=== PATIENT | male | born 1980 | race Caucasian/White ===

== ENCOUNTER 2016-08-09 01:29 | Inpatient (IN) | payer SELFPAY ==
[2016-08-09] MEDS ORDERED: OXYCODONE-ACETAMINOPHEN 5-325 MG TABLET PO ONE (03:43)
[2016-08-09] MEDS ORDERED: PROMETHAZINE HCL 25 MG TABLET PO ONE (03:43)
--- NOTE | 2016-08-09 03:52 | ER Document Report ---
ED Extremity Problem, Lower <VENU WRIGHT - Last Filed: 08/09/16 09:59> - General Time seen by provider: 03:51 TRAVEL OUTSIDE OF THE [place] IN LAST 30 DAYS: No <DIPTI ORTIZ - Last Filed: 08/09/16 19:04> - General Chief Complaint: Leg Pain Stated Complaint: LEG PAIN Notes: Patient is a 36-year-old male that comes emergency department with chief complaint of left lower examine swelling and pain. He states that the area started to become painful about 3 weeks ago and has become progressively swollen below the area at the base of his calf including the end of the leg and the foot. He is now walking with a crutch because of the discomfort. He denies injury to the area, denies history of the same, denies any medical history. He denies any surgeries, denies recent long distance travel, denies family history of blood clots. He denies fever. He smokes. (DIPTI ORTIZ) - Related Data Allergies/Adverse Reactions: No Known Allergies Allergy (Verified 08/09/16 01:35) Home Medications: Current Home Medications No Home Medications 08/09/16 [History] Past Medical History - General Information source: Patient - Social History Smoking Status: Current Every Day Smoker Drug Abuse: None Lives with: Spouse/Significant other Family History: Reviewed & Not Pertinent - Medical History Medical History: Negative Renal/ Medical History: Denies: Hx Peritoneal Dialysis Surgical Hx: Negative - Immunizations Immunizations up to date: Yes Hx Diphtheria, Pertussis, Tetanus Vaccination: Yes <DIPTI ORTIZ - Last Filed: 08/09/16 19:04> Review of Systems - Review of Systems Constitutional: No symptoms reported EENT: No symptoms reported Cardiovascular: No symptoms reported Respiratory: No symptoms reported Gastrointestinal: No symptoms reported Genitourinary: No symptoms reported Male Genitourinary: No symptoms reported Musculoskeletal: See HPI Skin: See HPI Hematologic/Lymphatic: No symptoms reported Neurological/Psychological: No symptoms reported <DIPTI ORTIZ - Last Filed: 08/09/16 19:04> Physical Exam - Vital signs Interpretation: Normal - General General appearance: Anxious In distress: None - HEENT Head: Normocephalic, Atraumatic Eyes: Normal Conjunctiva: Normal Extraocular movements intact: Yes Eyelashes: Normal Pupils: PERRL Mouth/Lips: Normal Mucous membranes: Normal Pharynx: Normal Neck: Normal - Respiratory Respiratory status: No respiratory distress Chest status: Nontender Breath sounds: Normal Chest palpation: Normal - Cardiovascular Rhythm: Regular. No: Tachycardia Heart sounds: Normal auscultation, S1 appreciated, S2 appreciated Murmur: No - Abdominal Inspection: Normal Distension: No distension Bowel sounds: Normal Tenderness: Nontender Organomegaly: No organomegaly - Back Back: Normal, Nontender. No: Tender - Extremities General upper extremity: Normal inspection, Nontender, Normal color, Normal ROM , Normal temperature General lower extremity: Other - edema and tenderness extending from the base of the calf over the medial aspect of the leg down towards the there is an area over the ankle with some erythema and a tiny amount of skin peeling, suggestive of cellulitis, however there is no induration noted or obvious fluctuance, there appears to be edema under the area. - Neurological Neuro grossly intact: Yes Cognition: Normal Orientation: AAOx4 [place] Coma Scale Eye Opening: Spontaneous Keisha Coma Scale Verbal: Oriented Keisha Coma Scale Motor: Obeys Commands [place] Coma Scale Total: 15 Speech: Normal Motor strength normal: LUE, RUE, LLE, RLE Sensory: Normal - Psychological Associated symptoms: Normal affect, Normal mood - Skin Skin Temperature: Warm Skin Moisture: Dry Skin Color: Normal <DIPTI ORTIZ - Last Filed: 08/09/16 19:04> - Vital signs Vitals: Temp Pulse Resp BP Pulse Ox 98.1 F 128 H 20 133/87 H 99 08/09/16 01:35 08/09/16 01:35 08/09/16 01:35 08/09/16 01:35 08/09/16 01:35 Course <VENU WRIGHT - Last Filed: 08/09/16 09:59> - Laboratory Result Diagrams: 08/09/16 10:30 08/09/16 10:30 <DIPTI ORTIZ - Last Filed: 08/09/16 19:04> - Re-evaluation Re-evalutation: 08/09/16 09:17 Dr. Diana Corado called report of venous duplex study negative for DVT 08/09/16 09:28 Reviewed patient's ultrasound report findings, consulted with Dr. Espinoza regarding patient's physical exam and ultrasound report. Advises obtaining MRI of the extremity, Dr. ruff advised that this is artifact been ordered. Also recommends obtaining CBC. States he will come see patient after his office hours today. 08/09/16 09:[address] Lieberman who agrees to come and examine patient 08/09/16 09:55 Dr Lieberman plans to take pt to OR. Dr Espinoza updated. (VENU WRIGHT) Slightly strange physical presentation with edema and tenderness extending from the base of the calf over the medial aspect of the left leg down towards the ankle and foot, there is an area over the ankle with some erythema and a tiny amount of skin peeling, suggestive of cellulitis, however there is no induration noted or obvious fluctuance, there appears to be edema under the area. 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 Afebrile, very comfortable on reevaluation. Introduced to Bharti TILLMANP who will assume care and followup on results. 08/09/16 08:55 Reevaluated patient at the bedside because I was still in the facility, area looks worse and more erythematous, could be from ultrasound but concerning for developing infection. Spoke with radiologist on the phone, area appears to be a deep abscess involving muscles and surrounding extremity tissues. Pending saline lock, vancomycin, laboratory workup, I discussed with radiologist and she recommends an MRI to further evaluate this. (DIPTI ORTIZ) - Vital Signs Vital signs: Temp Pulse Resp BP Pulse Ox 97.3 F 110 H 16 136/80 H 100 08/09/16 16:25 08/09/16 16:25 08/09/16 16:25 08/09/16 16:25 08/09/16 16:25 - Laboratory Laboratory results interpreted by me: 08/09/16 08/09/16 10:30 10:30 WBC 12.3 H RBC 3.94 L Hgb 11.1 L Hct 33.4 L RDW 14.4 H Plt Count 609 H Creatine Kinase < 20 L Discharge - Discharge Admitting Provider: Surgicalist Unit Admitted: Medical Floor <VENU WRIGHT - Last Filed: 08/09/16 09:59> - Discharge Admitting Provider: Surgicalist Unit Admitted: Medical Floor <WESTLEYMALOUDIPTI - Last Filed: 08/09/16 19:04> - Discharge Clinical Impression: Swelling of left lower extremity, Abscess of left lower extremity Leg pain Qualifiers: Laterality: left Qualified Code(s): M79.605 - Pain in left leg Condition: Stable Disposition: ADMITTED INPATIENT
[2016-08-09] MEDS ORDERED: SULFAMETHOXAZOLE/TRIMETHOPRIM 800-160 MG TABLET PO ONE (07:36)
[2016-08-09] MEDS ORDERED: DOXYCYCLINE HYCLATE 100 MG TABLET PO ONE (07:36)
[2016-08-09] MEDS ORDERED: VANCOMYCIN HCL INJ 1000 MG VIAL IV ONE (08:55)
[2016-08-09] MEDS ORDERED: MORPHINE SULFATE 10 MG/ML INJ IV ONE (09:03)
[2016-08-09] MEDS ORDERED: NORMAL SALINE 1000 ML 1,000 ML IV ONE (09:28)
[2016-08-09] MEDS ORDERED: HYDROMORPHONE HCL INJ/PF 2 MG/ML AMPULE ONE ×2 (10:26→11:39)
[2016-08-09] MEDS ORDERED: FENTANYL CITRATE INJ/PF 100 MCG/2 ML AMPUL ONE ×3 (10:26→12:25)
[2016-08-09] MEDS ORDERED: MIDAZOLAM 2 MG/2 ML INJ ONE (10:27)
[2016-08-09] MEDS ORDERED: PROPOFOL INJ 200 MG/20 ML VIAL IV ONE (10:27)
[2016-08-09 10:48] LABS: ABSOLUTE BASOPHILS # (AUTO) 0.1 10^3/uL (0.0-0.2); ABSOLUTE EOSINOPHILS # (AUTO) 0.1 10^3/uL (0.0-0.6); ABSOLUTE LYMPHOCYTES (AUTO) 3.1 10^3/uL (0.5-4.7); ABSOLUTE MONOCYTES (AUTO) 1.1 10^3/uL (0.1-1.4); ABSOLUTE NEUT (AUTO) 7.8 10^3/uL (1.7-8.2); EOSINOPHILS % (AUTO) 1.1 % (0-6); HEMATOCRIT 33.4 % (37.9-51.0); HEMOGLOBIN 11.1 g/dL (13.5-17.0); HGB HCT DIFFERENCE -0.1; LYMPHOCYTES % (AUTO) 25.3 % (13-45); MEAN CORPUSCULAR HEMOGLOBIN 28.3 pg (27.0-33.4); MEAN CORPUSCULAR HGB CONC 33.3 g/dL (32.0-36.0); MEAN CORPUSCULAR VOLUME 85 fl (80-97); RED BLOOD COUNT 3.94 10^6/uL (4.35-5.55); RED CELL DISTRIBUTION WIDTH 14.4 % (11.5-14.0); SEGMENTED NEUTROPHILS % (AUTO) 63.6 % (42-78); WHITE BLOOD COUNT 12.3 10^3/uL (4.0-10.5)
[2016-08-09] MEDS ORDERED: LIDOCAINE 0.5% INJ-PF (5 MG/ML) 50 ML SDV ONE (10:53)
[2016-08-09] MEDS ORDERED: ACETAMINOPHEN 100 ML IV ONE (10:53)
--- NOTE | 2016-08-09 10:53 | HISTORY AND PHYSICAL E ---
History and Physical NAME: ION HANSEN : 1980 AGE: 36Y ADMITTED: 08/09/2016 ROOM: ED12 CHIEF COMPLAINT: Pains in the left lower leg. HISTORY OF PRESENT ILLNESS: This is a 36-year-old male who complained of pains along the left lower leg that started 3 weeks ago. He denies any trauma nor insect bite. His occupation is he owns a boat for fishing, but his boat is under repair in the past 2 months. 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 He came in today to the emergency room because of severe pains and he has to use a crutch to walk. An ultrasound of the left lower leg was done which showed a large abscess around the area of the ankle going up towards the area of the knee. There also may be a hematoma or abscess below the soleus below the knee. PAST MEDICAL HISTORY: Unremarkable. SOCIAL HISTORY: He smokes about one pack a day. Denies alcohol or drug use. ALLERGIES: None known. REVIEW OF SYSTEMS: As in HPI. Complaining of severe pains along the left lower leg. Denies any nausea, vomiting, diarrhea, constipation or fever or chills. No dysuria. The rest of the systems are unremarkable. FAMILY HISTORY: Negative for diabetes. PHYSICAL EXAMINATION: GENERAL: A well-developed, well-nourished 36-year-old male, alert and oriented complaining of left leg pains. HEENT: Neck is supple. No thyromegaly. LUNGS: Lungs were clear. HEART: Regular sinus rhythm. ABDOMEN: Soft and nontender. EXTREMITIES: The left lower leg from the ankle is erythematous and with swelling and fluctuation and marked tenderness. There is also swelling on the medial aspect of the left lower leg just above the ankle. Pulses are intact along the left ankle. Left foot is warm. Left ankle function appears intact, but a little discomfort or pains on dorsiflexion. IMPRESSION: Abscess of the left lower leg. PLAN: The patient is to be given IV fluids, IV antibiotics and taken to the OR for incision and drainage of the leg abscess. DICTATING PHYSICIAN: MARÍA HESS M.D. [id number] PHY#: [id number] ID: [id number] JOB#: [id number] ACCT: [id number] cc:MARÍA HESS M.D. >
[2016-08-09 11:08] LABS: ANION GAP 11 (5-19); BLOOD UREA NITROGEN 12 mg/dL (7-20); CALCIUM 9.3 mg/dL (8.4-10.2); CARBON DIOXIDE 26 mmol/L (22-30); CHLORIDE 104 mmol/L (98-107); CREATINE KINASE < 20 U/L (55-170); CREATININE RESULT 0.69 mg/dL (0.52-1.25); GLUCOSE 90 mg/dL (75-110); POTASSIUM 4.5 mmol/L (3.6-5.0); SODIUM 141.2 mmol/L (137-145)
[2016-08-09] MEDS ORDERED: PROMETHAZINE HCL INJ 25 MG/1 ML VIAL IV PRN (11:22)
[2016-08-09] MEDS ORDERED: ONDANSETRON HCL INJ/PF 4 MG/2 ML SDV IV PRN (12:28)
--- NOTE | 2016-08-09 13:03 | OPERATIVE REPORT E ---
Operative Report NAME: ION HANSEN : 1980 AGE: 36Y DATE OF SURGERY: ROOM: ED12 PREOPERATIVE DIAGNOSIS: Large abscess of the left lower leg. POSTOPERATIVE DIAGNOSIS: Large abscess left lower leg with intramuscular extension below the soleus muscle. OPERATION: Incision and drainage of large abscess lower leg with extension to the intramuscular muscles. SURGEON: MARÍA HESS M.D. ANESTHESIA: General. INDICATION: This is a 36-year-old male who has been complaining of pains in the left lower leg for the past 2-1/2 weeks. He finally was able to talk to his sister, who claimed that the patient told her that a dresser he was moving fell on his left leg about 2-1/2 weeks ago. The patient claims that there is no history of trauma. He had an ultrasound of the left leg, which showed extensive abscess extending to below the soleus muscle. PROCEDURE: After adequate general anesthesia, the left leg from above the knee to the toes was then prepped and draped in the usual sterile fashion. A longitudinal incision was made over the most fluctuant area in the ankle. The abscess cavity was then sharply opened and a gush of yellowish purulent material extruded out. Cultures were obtained. The incision extended proximally to a distance of about 10 cm. The veins were clamped and ligated with 2-0 Vicryl ties. At least 300 mL of purulent material was expressed out. With a finger dissection, the abscess cavity appears to go underneath the soleus muscle. The proximal end of the collection was then opened with use of cautery, dividing part of the muscle. This was done to make sure that the area will be irrigated nicely and make sure there is no further collection superior to this. Next, the cavity was then copiously irrigated with PulsaVac using 6 liters of saline. Hemostasis was partially controlled with cautery. Irrigation also done of the muscle superiorly. After the irrigation, at least 2 extensor tendons were exposed. The area was subsequently packed with Betadine soaked Khalida and 1/2 inch Iodoform gauze placed through the muscle proximally, into the cavity. The wound roughly was about 4 cm deep and 10 cm long. Next, 0 Prolene sutures were placed interrupted to keep the dressings in place. About 6 sutures were placed. Next, ABD pads were placed on top of the wound and wrapped with Khalida and Jorgito bandage. The patient tolerated the procedure well and brought to the recovery room in satisfactory condition. Needle, instrument, and sponge count were all correct. Estimated blood loss was about 100 mL. DICTATING PHYSICIAN: MARÍA HESS M.D. [id number] PHY#: [id number] ID: [id number] JOB#: [id number] ACCT: [id number] cc:MARÍA HESS M.D. >
[2016-08-09] MEDS: NORMAL SALINE 1000 ML 1,000 ML IV PRN (13:53)
[2016-08-09] MEDS: FENTANYL CITRATE INJ/PF 100 MCG/2 ML AMPUL IV PRN ×16 (14:05→14:14)
[2016-08-09] MEDS: MEPERIDINE HCL/PF INJ 25 MG/1 ML DISP.SYRIN IV PRN ×4 (14:05→14:10)
[2016-08-09] MEDS: MORPHINE SULFATE 10 MG/ML INJ IV PRN ×5 (14:05→14:15)
[2016-08-09] MEDS: DIPHENHYDRAMINE HCL 50 MG/ML VIAL IV PRN ×7 (14:05→14:13)
[2016-08-09] MEDS: HYDROMORPHONE HCL INJ/PF 2 MG/ML AMPULE IV PRN ×3 (14:44→22:46)
[2016-08-09] MEDS ORDERED: KETOROLAC TROMETHAMINE 60 MG/2 ML SDV ONE (15:52)
[2016-08-09] MEDS ORDERED: ONDANSETRON HCL INJ/PF 4 MG/2 ML SDV ONE (15:52)
[2016-08-09] MEDS ORDERED: DEXAMETHASONE SOD PHOSPHATE INJ 4 MG/1 ML VIAL ONE (15:52)
--- NOTE | 2016-08-09 16:29 | XCELERA REPORT ---
[address] [address] Lower Extremity Venous Evaluation Name: ION HANSEN JR Age: 36 yrs Gender: Male : 1980 Patient Status: Emergency Patient Location: ER Study Date: 08/09/2016 08:53 AM Procedure: Color flow and duplex imaging of the veins of the left lower extremity as well as the right Common Femoral vein. Reason For Study: LLE swelling and pain Ordering Physician: DIPTI ORTIZ Performed By: Shonna Pineda Right Sided Venous Evaluation The right common femoral vein is fully compressible. Spontaneous and phasic flow is present in the right common femoral vein. Left Sided Venous Evaluation Normal vessel filling wall to wall, compression and augmentation as well as Colour flow down to the infrageniculate veins. Interpretation Summary No duplex evidence of DVT or obstruction in the left lower extremity nor in the right Common Femoral vein. : DIPTI ORTIZ > Luisito Corado
[2016-08-09] MEDS: VANCOMYCIN HCL 1,250 MG in DEXTROSE 5%-WATER 250 ML IV SCH (18:51)
[2016-08-09] MEDS ORDERED: NICOTINE 14 MG/24 HR PATCH.TD24 TD ONE (21:00)
[2016-08-10] MEDS: NORMAL SALINE 1000 ML 1,000 ML IV PRN (01:23)
[2016-08-10] MEDS: VANCOMYCIN HCL 1,250 MG in DEXTROSE 5%-WATER 250 ML IV SCH ×3 (01:23→18:44)
[2016-08-10] MEDS: HYDROMORPHONE HCL INJ/PF 2 MG/ML AMPULE IV PRN ×6 (02:16→21:54)
[2016-08-10] MEDS ORDERED: KETOROLAC TROMETHAMINE INJ/PF 30 MG/1 ML SDV ONE (05:06)
[2016-08-10] MEDS: KETOROLAC TROMETHAMINE INJ/PF 30 MG/1 ML SDV IV SCH ×3 (05:25→21:05)
[2016-08-10] MEDS ORDERED: DEXTROSE 40% GEL 15 GM TUBE PO PRN ×2 (05:46)
[2016-08-10] MEDS ORDERED: DEXTROSE 50%-WATER 25 GM/50 ML DISP.SYRIN IV PRN ×2 (05:46)
[2016-08-10] MEDS ORDERED: GLUCAGON,HUMAN RECOMB 1 MG INJ SUBCUT PRN (05:46)
[2016-08-10] MEDS: NICOTINE 14 MG/24 HR PATCH.TD24 TD SCH (10:17)
[2016-08-10] MEDS ORDERED: HYDROMORPHONE HCL INJ/PF 2 MG/ML AMPULE ONE (15:16)
[2016-08-10] MEDS ORDERED: FENTANYL CITRATE INJ/PF 100 MCG/2 ML AMPUL ONE (15:16)
[2016-08-10] MEDS ORDERED: MIDAZOLAM 2 MG/2 ML INJ ONE (15:17)
[2016-08-10] MEDS ORDERED: PROPOFOL INJ 200 MG/20 ML VIAL IV ONE (15:17)
[2016-08-10] MEDS ORDERED: DIPHENHYDRAMINE HCL 50 MG/ML VIAL IV PRN (16:26)
[2016-08-10] MEDS ORDERED: PROMETHAZINE HCL INJ 25 MG/1 ML VIAL IV PRN (16:26)
[2016-08-10] MEDS ORDERED: FENTANYL CITRATE INJ/PF 100 MCG/2 ML AMPUL IV PRN ×3 (16:26)
[2016-08-10] MEDS ORDERED: HYDROMORPHONE HCL INJ/PF 2 MG/ML AMPULE IV PRN (17:18)
--- NOTE | 2016-08-10 17:23 | OPERATIVE REPORT E ---
Operative Report NAME: ION HANSEN : 1980 AGE: 36Y DATE OF SURGERY: 08/10/2016 ROOM: 527 PREOPERATIVE DIAGNOSIS: Post incision and drainage of large abscess, intramuscular, and packing. POSTOPERATIVE DIAGNOSIS: Post incision and drainage of large abscess, intramuscular, and packing. OPERATION: Debridement and PulsaVac of left leg ulcer with change of packing and dressing. SURGEON: MARÍA HESS M.D. ANESTHESIA: General. INDICATION: This is a 36-year-old male who had a large ulcer/abscess in the left lower leg which was I and D'd yesterday. The abscess appears to track down underneath the soleus muscle. DESCRIPTION OF PROCEDURE: After adequate general anesthesia the left leg was prepped and draped in the usual sterile fashion. The packing was then removed and the area was PulsaVac'd with at least 2 L. There was an area of necrosis on the surface that was subsequently sharply debrided. However, no further abscess collection was noted and the area looks relatively clean. Initial culture yesterday showed gram-positive cocci in clusters, indicating likely a Staph aureus. He has been on vancomycin since yesterday. Hemostasis was further controlled with cautery. Further PulsaVac using the rest of the 3rd liter of fluid was done. The muscle also looked pink and viable. Next, the area was then repacked with 4 bottles of half inch Iodoform gauze. Sutures of 0-Prolene was placed on the skin to keep the packing in place. A sterile dressing using ABD pads and cling as well as selene bandage were used to dress the wound. The patient tolerated the procedure well. needle, instrument and sponge counts were all correct. Estimated blood loss was minimal. The patient was brought to recovery room in satisfactory condition. DICTATING PHYSICIAN: MARÍA HESS M.D. [id number] PHY#: [id number] ID: [id number] JOB#: [id number] ACCT: [id number] cc:MARÍA HESS M.D. >
[2016-08-10 18:09] LABS: CREATININE RESULT 0.75 mg/dL (0.52-1.25)
[2016-08-11] MEDS: VANCOMYCIN HCL 1,250 MG in DEXTROSE 5%-WATER 250 ML IV SCH ×3 (01:02→22:11)
[2016-08-11] MEDS: HYDROMORPHONE HCL INJ/PF 2 MG/ML AMPULE IV PRN ×7 (01:02→23:14)
[2016-08-11 04:46] LABS: ABSOLUTE BASOPHILS # (AUTO) 0.1 10^3/uL (0.0-0.2); ABSOLUTE EOSINOPHILS # (AUTO) 0.2 10^3/uL (0.0-0.6); ABSOLUTE LYMPHOCYTES (AUTO) 2.8 10^3/uL (0.5-4.7); ABSOLUTE MONOCYTES (AUTO) 1.6 10^3/uL (0.1-1.4); ABSOLUTE NEUT (AUTO) 10.7 10^3/uL (1.7-8.2); BASOPHILS % (AUTO) 0.7 % (0-2); HEMATOCRIT 20.9 % (37.9-51.0); HGB HCT DIFFERENCE -0.5; MEAN CORPUSCULAR HEMOGLOBIN 27.7 pg (27.0-33.4); MEAN CORPUSCULAR HGB CONC 32.4 g/dL (32.0-36.0); MEAN CORPUSCULAR VOLUME 86 fl (80-97); MONOCYTES % (AUTO) 10.3 % (3-13); RED BLOOD COUNT 2.44 10^6/uL (4.35-5.55); RED CELL DISTRIBUTION WIDTH 14.9 % (11.5-14.0); WHITE BLOOD COUNT 15.3 10^3/uL (4.0-10.5)
[2016-08-11 04:58] LABS: HEMOGLOBIN 6.8 g/dL (13.5-17.0)
[2016-08-11 05:09] LABS: ANION GAP 8 (5-19); BLOOD UREA NITROGEN 13 mg/dL (7-20); CALCIUM 8.1 mg/dL (8.4-10.2); CARBON DIOXIDE 24 mmol/L (22-30); CHLORIDE 105 mmol/L (98-107); GLUCOSE 103 mg/dL (75-110); POTASSIUM 4.3 mmol/L (3.6-5.0); SODIUM 136.8 mmol/L (137-145)
[2016-08-11 05:34] LABS: ERYTHROCYTE SEDIMENTATION RATE 61 mm/hr (0-15)
[2016-08-11] MEDS: KETOROLAC TROMETHAMINE INJ/PF 30 MG/1 ML SDV IV SCH ×3 (05:49→22:11)
[2016-08-11] MEDS: NICOTINE 14 MG/24 HR PATCH.TD24 TD SCH (09:09)
[2016-08-11] MEDS ORDERED: FENTANYL CITRATE INJ/PF 100 MCG/2 ML AMPUL ONE (11:54)
[2016-08-11] MEDS ORDERED: MIDAZOLAM 2 MG/2 ML INJ ONE (11:54)
[2016-08-11] MEDS ORDERED: PROPOFOL INJ 200 MG/20 ML VIAL IV ONE (11:55)
[2016-08-11] MEDS ORDERED: EPHEDRINE SULFATE INJ 50 MG/1 ML AMPULE ONE (11:55)
[2016-08-11] MEDS ORDERED: ONDANSETRON HCL INJ/PF 4 MG/2 ML SDV ONE (11:55)
[2016-08-11] MEDS: FENTANYL CITRATE INJ/PF 100 MCG/2 ML AMPUL ONE ×2 (13:19→13:39)
[2016-08-11] MEDS: PROMETHAZINE HCL INJ 25 MG/1 ML VIAL IV PRN ×3 (13:21→14:51)
[2016-08-11] MEDS: MEPERIDINE HCL/PF INJ 25 MG/1 ML DISP.SYRIN IV PRN ×3 (13:21→14:51)
[2016-08-11] MEDS: DIPHENHYDRAMINE HCL 50 MG/ML VIAL IV PRN ×3 (13:21→14:51)
[2016-08-11] MEDS: FENTANYL CITRATE INJ/PF 100 MCG/2 ML AMPUL IV PRN ×9 (13:21→14:51)
[2016-08-11] MEDS ORDERED: KETOROLAC TROMETHAMINE INJ/PF 30 MG/1 ML SDV ONE (13:59)
--- NOTE | 2016-08-11 14:04 | OPERATIVE REPORT E ---
Operative Report NAME: ION HANSEN : 1980 AGE: 36Y DATE OF SURGERY: 08/11/2016 ROOM: [facility] PREOPERATIVE DIAGNOSIS: Large abscess site on the left lower leg post I and D. POSTOPERATIVE DIAGNOSIS: Large abscess site on the left lower leg post I and D. Proximal intramuscular component. OPERATION: Debridement of large I and D site on the left lower leg, measuring 10 inches long x 2 inches deep. Debridement with use of Pulsavac and sharp debridement of superficial necrotic tissue. Placement of a wound VAC. SURGEON: MARÍA HESS M.D. ANESTHESIA: General. INDICATION: This is a 36-year-old male who developed a large abscess of the left lower leg after a piece of dresser hit him on the left leg about 2-1/2 weeks ago. This was initially drained 2 days ago and again debrided yesterday. This is the 3rd time the patient is going to the OR for debridement and placement of a wound VAC. DESCRIPTION OF PROCEDURE: After adequate general anesthesia, the left lower leg was then prepped and draped in the usual sterile fashion. All the packings were then removed. There is a thin layer of necrotic tissue on the surface of the muscle. This was then removed with shaving with a 15 blade. The area was then Pulsavac'd using 8 liters of normal saline. After irrigation, more superficial debris was then sharply removed. The muscle looked viable. No obvious collection noted. A wound VAC was then applied to the wound after adequate hemostasis was noted. It was connected to suction at -135 mmHg. He will probably need another change in wound VAC in the next 24-48 hours. In the meantime, will monitor his white count and temperature. The patient tolerated the procedure well. Needle, instrument, and sponge count were all correct. Estimated blood loss was minimal. The patient was then brought to the recovery room in satisfactory condition. DICTATING PHYSICIAN: MARÍA HESS M.D. [id number] PHY#: [id number] ID: [id number] JOB#: [id number] ACCT: [id number] cc:MARÍA HESS M.D. >
[2016-08-11] MEDS ORDERED: VANCOMYCIN HCL 1,250 MG in DEXTROSE 5%-WATER 250 ML IV ONE (15:00)
[2016-08-11] MEDS ORDERED: HYDROMORPHONE HCL INJ/PF 2 MG/ML AMPULE IV PRN (20:13)
[2016-08-12] MEDS: OXYCODONE-ACETAMINOPHEN 5-325 MG TABLET PO PRN ×3 (01:50→21:36)
[2016-08-12] MEDS: HYDROMORPHONE HCL INJ/PF 2 MG/ML AMPULE IV PRN ×7 (02:16→22:02)
[2016-08-12 03:57] LABS: APPEARANCE,URINE SLIGHTLY-CLOUDY; BILIRUBIN,URINE NEGATIVE (NEGATIVE); GLUCOSE, URINE NEGATIVE (NEGATIVE); KETONES,URINE NEGATIVE (NEGATIVE); LEUKOCYTE ESTERASE,URINE MODERATE (NEGATIVE); NITRITE,URINE NEGATIVE (NEGATIVE); PROTEIN,URINE NEGATIVE (NEGATIVE); URINE SPECIFIC GRAVITY 1.011; UROBILINOGEN,URINE NEGATIVE mg/dL (<2.0)
[2016-08-12] MEDS: KETOROLAC TROMETHAMINE INJ/PF 30 MG/1 ML SDV IV SCH ×3 (05:17→21:36)
[2016-08-12] MEDS: VANCOMYCIN HCL 1,250 MG in DEXTROSE 5%-WATER 250 ML IV SCH ×3 (05:17→21:36)
[2016-08-12 06:08] LABS: HEMATOCRIT 26.2 % (37.9-51.0); HEMOGLOBIN 8.8 g/dL (13.5-17.0); HGB HCT DIFFERENCE 0.2; MEAN CORPUSCULAR HGB CONC 33.5 g/dL (32.0-36.0); MEAN CORPUSCULAR VOLUME 87 fl (80-97); RED BLOOD COUNT 3.03 10^6/uL (4.35-5.55); RED CELL DISTRIBUTION WIDTH 15.1 % (11.5-14.0); WHITE BLOOD COUNT 10.2 10^3/uL (4.0-10.5)
[2016-08-12 06:21] LABS: ANION GAP 7 (5-19); BLOOD UREA NITROGEN 14 mg/dL (7-20); CALCIUM 8.2 mg/dL (8.4-10.2); CARBON DIOXIDE 25 mmol/L (22-30); CHLORIDE 110 mmol/L (98-107); CREATININE RESULT 0.83 mg/dL (0.52-1.25); GLUCOSE 126 mg/dL (75-110); POTASSIUM 4.3 mmol/L (3.6-5.0); SODIUM 141.5 mmol/L (137-145)
[2016-08-12 06:44] LABS: ERYTHROCYTE SEDIMENTATION RATE 46 mm/hr (0-15)
[2016-08-12] MEDS: NICOTINE 14 MG/24 HR PATCH.TD24 TD SCH (09:23)
[2016-08-12] MEDS ORDERED: DEXTROSE 50%-WATER 25 GM/50 ML DISP.SYRIN IV PRN ×2 (22:09)
[2016-08-12] MEDS ORDERED: GLUCAGON,HUMAN RECOMB 1 MG INJ SUBCUT PRN (22:09)
[2016-08-12] MEDS ORDERED: DEXTROSE 40% GEL 15 GM TUBE PO PRN ×2 (22:09)
[2016-08-13] MEDS: HYDROMORPHONE HCL INJ/PF 2 MG/ML AMPULE IV PRN ×7 (01:04→22:58)
[2016-08-13] MEDS: OXYCODONE-ACETAMINOPHEN 5-325 MG TABLET PO PRN ×4 (03:13→20:31)
[2016-08-13] MEDS: VANCOMYCIN HCL 1,250 MG in DEXTROSE 5%-WATER 250 ML IV SCH ×3 (05:34→21:20)
[2016-08-13 06:43] LABS: ABSOLUTE BASOPHILS # (AUTO) 0.1 10^3/uL (0.0-0.2); ABSOLUTE EOSINOPHILS # (AUTO) 0.3 10^3/uL (0.0-0.6); ABSOLUTE LYMPHOCYTES (AUTO) 2.4 10^3/uL (0.5-4.7); ABSOLUTE MONOCYTES (AUTO) 1.2 10^3/uL (0.1-1.4); ABSOLUTE NEUT (AUTO) 6.9 10^3/uL (1.7-8.2); BASOPHILS % (AUTO) 0.7 % (0-2); EOSINOPHILS % (AUTO) 2.5 % (0-6); HEMATOCRIT 25.5 % (37.9-51.0); HEMOGLOBIN 8.7 g/dL (13.5-17.0); HGB HCT DIFFERENCE 0.6; MEAN CORPUSCULAR HEMOGLOBIN 29.4 pg (27.0-33.4); MEAN CORPUSCULAR HGB CONC 34.2 g/dL (32.0-36.0); MEAN CORPUSCULAR VOLUME 86 fl (80-97); MONOCYTES % (AUTO) 10.7 % (3-13); RED BLOOD COUNT 2.97 10^6/uL (4.35-5.55); RED CELL DISTRIBUTION WIDTH 15.1 % (11.5-14.0); SEGMENTED NEUTROPHILS % (AUTO) 64.1 % (42-78); WHITE BLOOD COUNT 10.8 10^3/uL (4.0-10.5)
[2016-08-13] MEDS: NICOTINE 14 MG/24 HR PATCH.TD24 TD SCH (10:36)
[2016-08-13] MEDS: NORMAL SALINE 1000 ML 1,000 ML IV PRN ×2 (13:45→21:24)
[2016-08-13] MEDS ORDERED: KETAMINE HCL INJ 500 MG/10 ML VIAL ONE (17:29)
[2016-08-13] MEDS ORDERED: PROPOFOL INJ 200 MG/20 ML VIAL IV ONE (17:30)
[2016-08-13] MEDS ORDERED: FENTANYL CITRATE INJ/PF 100 MCG/2 ML AMPUL ONE (17:30)
[2016-08-13] MEDS ORDERED: MIDAZOLAM 2 MG/2 ML INJ ONE (17:30)
[2016-08-13] MEDS ORDERED: FENTANYL CITRATE INJ/PF 100 MCG/2 ML AMPUL IV PRN ×3 (18:13)
[2016-08-13] MEDS ORDERED: DIPHENHYDRAMINE HCL 50 MG/ML VIAL IV PRN (18:13)
[2016-08-13] MEDS ORDERED: PROMETHAZINE HCL INJ 25 MG/1 ML VIAL IV PRN (18:13)
[2016-08-14] MEDS: OXYCODONE-ACETAMINOPHEN 5-325 MG TABLET PO PRN ×4 (00:47→17:32)
--- NOTE | 2016-08-14 01:33 | OPERATIVE REPORT E ---
Operative Report NAME: ION HANSEN : 1980 AGE: 36Y DATE OF SURGERY: 08/13/2016 ROOM: [facility] PREOPERATIVE DIAGNOSIS: LEFT LOWER EXTREMITY OPEN WOUND DEEP WITH MUSCLE EXPOSED. POSTOPERATIVE DIAGNOSIS: LEFT LOWER EXTREMITY OPEN WOUND DEEP WITH MUSCLE EXPOSED. OPERATION: Changing of left lower extremity wound VAC under anesthesia. SURGEON: TABITHA NEWMAN M.D. ANESTHESIA: MAC. FINDINGS AT PROCEDURE: The patient's wound is granulating well of the left lower extremity with no necrotic debris being present at the current time. PROCEDURE: After informed consent was obtained, the patient was taken to the procedure room and placed in the supine position. MAC anesthesia was administered. The wound VAC was then removed from the left lower extremity. The wound was granulating in with minimal tendon showing. Wound VAC was then replaced. The patient was then awakened and taken to from the procedure room in stable condition. ESTIMATED BLOOD LOSS: None. COMPLICATIONS: None. CONDITION OF PATIENT AFTER PROCEDURE: Stable. SPECIMENS: None. DRAINS: Drains were packed. The wound VAC was placed. CLASSIFICATION OF WOUND: Contaminated. DICTATING PHYSICIAN: TABITHA NEWMAN M.D. [id number] PHY#: [id number] ID: [id number] JOB#: [id number] ACCT: [id number] cc:TABITHA NEWMAN M.D. >
[2016-08-14] MEDS: HYDROMORPHONE HCL INJ/PF 2 MG/ML AMPULE IV PRN ×8 (02:08→23:45)
[2016-08-14] MEDS: VANCOMYCIN HCL 1,250 MG in DEXTROSE 5%-WATER 250 ML IV SCH ×3 (05:40→22:09)
[2016-08-14] MEDS: NICOTINE 14 MG/24 HR PATCH.TD24 TD SCH (11:37)
--- NOTE | 2016-08-14 23:28 | PROGRESS NOTE E ---
Progress Note NAME: ION HANSEN : 1980 AGE: 36Y DATE: 08/14/2016 ROOM: 527 Patient has a significant infection on the lower left leg, undergoing incision, drainage and debridement. He has been on IV antibiotics for an MRSA infection. The wound VAC had been placed on wound and changed yesterday with the wound starting to granulate in and without necrotic debris. SUBJECTIVE: Complaints of pain at the surgical site. OBJECTIVE: Wound VAC is in place in the left lower extremity. PLAN: 1. Continue IV antibiotics. 2. Wound VAC change in next 2-4 days. 3. Pain control which is difficult in his case. We will try and shorten the duration of when he can get his Dilaudid, and he is also on Percocet. DICTATING PHYSICIAN: TABITHA NEWMAN M.D. [id number] PHY#: [id number] ID: [id number] JOB#: [id number] ACCT: [id number] cc: >
[2016-08-15] MEDS: HYDROMORPHONE HCL INJ/PF 2 MG/ML AMPULE IV PRN ×9 (01:45→22:13)
[2016-08-15] MEDS: OXYCODONE-ACETAMINOPHEN 5-325 MG TABLET PO PRN ×3 (01:46→17:17)
[2016-08-15] MEDS: VANCOMYCIN HCL 1,250 MG in DEXTROSE 5%-WATER 250 ML IV SCH ×3 (05:56→22:12)
--- NOTE | 2016-08-15 08:59 | PROGRESS NOTE E ---
Progress Note NAME: ION HANSEN : 1980 AGE: 36Y DATE: 08/12/2016 ROOM: 527 CHIEF COMPLAINT: The patient had a severe infection in the left lower extremity, undergoing debridement and now having wound VAC placed. SUBJECTIVE: The patient has complaints of pain at the surgical site which is being relieved with IV pain medication along with oral Percocet. OBJECTIVE: The patient has a wound VAC in place on the left lower extremity medial aspect. DIAGNOSTIC DATA: White blood cell count is 11. ASSESSMENT: SEVERE INFECTION, RIGHT LOWER EXTREMITY, STATUS POST DEBRIDEMENT, DRAINAGE, AND WOUND VAC PLACEMENT. I WOULD RECOMMEND THE PATIENT UNDERGO A WOUND VAC CHANGE IN THE MORNING IN THE OPERATING ROOM UNDER ANESTHESIA. PLAN: Wound VAC change in a.m. under anesthesia in the operating room. DICTATING PHYSICIAN: TABITHA NEWMAN M.D. [id number] [id number] PHY#: [id number] ID: [id number] JOB#: [id number] ACCT: [id number] cc: >
[2016-08-15] MEDS: NICOTINE 14 MG/24 HR PATCH.TD24 TD SCH (09:23)
[2016-08-15] MEDS: DOCUSATE SODIUM 100 MG CAPSULE PO SCH ×2 (09:24→17:58)
[2016-08-15] MEDS: MULTIVITAMIN TABLET PO SCH (09:24)
[2016-08-15] MEDS: FERROUS SULFATE 325 MG TABLET PO SCH (09:24)
[2016-08-15] MEDS: FONDAPARINUX SODIUM INJ 2.5 MG/0.5 ML DISP.SYRIN SUBCUT SCH (09:24)
--- NOTE | 2016-08-15 12:53 | PROGRESS NOTE E ---
Progress Note NAME: ION HANSEN : 1980 AGE: 36Y DATE: 08/15/2016 ROOM: 527 SUBJECTIVE: The patient is a 36-year-old gentleman who has a history of drug abuse. He had been admitted for a left lower extremity wound which was debrided and a wound VAC was placed. OBJECTIVE: The wound VAC is intact. There is no sign of cellulitis. PLAN: Is just to continue the wound VAC and change it in a few days. DICTATING PHYSICIAN: GERALD LOPEZ M.D. [id number] PHY#: [id number] ID: [id number] JOB#: [id number] ACCT: [id number] cc: >
[2016-08-16] MEDS: HYDROMORPHONE HCL INJ/PF 2 MG/ML AMPULE IV PRN ×10 (00:07→22:20)
[2016-08-16 06:15] LABS: HEMATOCRIT 31.2 % (37.9-51.0); HEMOGLOBIN 10.4 g/dL (13.5-17.0); MEAN CORPUSCULAR HGB CONC 33.2 g/dL (32.0-36.0); MEAN CORPUSCULAR VOLUME 87 fl (80-97); RED BLOOD COUNT 3.58 10^6/uL (4.35-5.55); RED CELL DISTRIBUTION WIDTH 15.5 % (11.5-14.0); WHITE BLOOD COUNT 8.7 10^3/uL (4.0-10.5)
[2016-08-16 06:35] LABS: CREATININE RESULT 0.89 mg/dL (0.52-1.25)
[2016-08-16] MEDS: VANCOMYCIN HCL 1,250 MG in DEXTROSE 5%-WATER 250 ML IV SCH (06:39)
[2016-08-16] MEDS: FONDAPARINUX SODIUM INJ 2.5 MG/0.5 ML DISP.SYRIN SUBCUT SCH (11:09)
[2016-08-16] MEDS: DOCUSATE SODIUM 100 MG CAPSULE PO SCH ×2 (11:11→18:07)
[2016-08-16] MEDS: NICOTINE 14 MG/24 HR PATCH.TD24 TD SCH (11:12)
[2016-08-16] MEDS: MULTIVITAMIN TABLET PO SCH (11:12)
[2016-08-16] MEDS: FERROUS SULFATE 325 MG TABLET PO SCH (11:12)
--- NOTE | 2016-08-16 11:33 | PROGRESS NOTE E ---
Progress Note NAME: ION HANSEN : 1980 AGE: 36Y DATE: 08/16/2016 ROOM: 527 SUBJECTIVE: The patient's wound VAC continues to look healthy. He still complains of pain when weightbearing. There is no sign of infection, however, the wound VAC I was told and signed out be changed on Friday. The patient has requested that it be done in the operating room. We will defer to whichever surgicalist is seeing him at that time. I spent some time discussing the potential for skin grafting with him and what is involved in that. He is still continuing to complain of pain. He does have a past history of drug abuse but states that he has been clean for a year. The pain medication of Dilaudid is not lasting. He is using it q.2 hours. I have discussed it with the nurse. I am going to increase his pain medications to 3 mg of hydromorphone and I am going to get some physical therapy for him. DICTATING PHYSICIAN: GERALD LOPEZ M.D. [id number] [id number] PHY#: [id number] ID: [id number] JOB#: [id number] ACCT: [id number] cc: >
[2016-08-16] MEDS ORDERED: VANCOMYCIN HCL 1,000 MG in DEXTROSE 5%-WATER 250 ML IV SCH (22:00)
[2016-08-16] MEDS: OXYCODONE-ACETAMINOPHEN 5-325 MG TABLET PO PRN (23:39)
[2016-08-17] MEDS: HYDROMORPHONE HCL INJ/PF 2 MG/ML AMPULE IV PRN ×6 (00:35→22:54)
[2016-08-17] MEDS: DOCUSATE SODIUM 100 MG CAPSULE PO SCH ×2 (09:01→18:25)
[2016-08-17] MEDS: FERROUS SULFATE 325 MG TABLET PO SCH (09:02)
[2016-08-17] MEDS: OXYCODONE-ACETAMINOPHEN 5-325 MG TABLET PO PRN ×3 (09:03→21:38)
[2016-08-17] MEDS: MULTIVITAMIN TABLET PO SCH (09:03)
[2016-08-17] MEDS: OXYCODONE HCL IR 5 MG TABLET PO PRN ×3 (09:04→21:43)
[2016-08-17] MEDS: FONDAPARINUX SODIUM INJ 2.5 MG/0.5 ML DISP.SYRIN SUBCUT SCH (09:05)
[2016-08-17] MEDS: NICOTINE 14 MG/24 HR PATCH.TD24 TD SCH (09:13)
--- NOTE | 2016-08-17 09:47 | PDOC PROGRESS REPORT ---
Subjective Progress Note for:: 08/17/16 Subjective:: still asking pain meds every 2 hours Physical Exam Vital Signs: Temp Pulse Resp BP Pulse Ox 98.0 F 97 16 103/60 98 08/17/16 07:24 08/17/16 07:24 08/17/16 07:24 08/17/16 07:24 08/17/16 07:24 Intake & Output 08/16/16 08/17/16 08/18/16 06:59 06:59 06:59 Intake Total 2167 930 Output Total 2375 1025 Balance -208 -95 Extremities exam: PRESENT: other - Left leg vertical wound, with vac in place , clean no cellulitis, non tender, no signs of any necrotic tissue. NO vascular or neurological deficit. Wound is clean His pain level - not consitent with clinical picture patient education rendered about pain management and possible overdose and abuse, still paln to treat his pain appropriately , refer to pain management. Patient can be discharged with out patient wound management . Expalined to the patinet and discussed with workforce planner. Results Laboratory Results: 08/16/16 06:01 08/16/16 06:01 Impressions: Extremity Ultrasound 08/09/16 07:27 IMPRESSION: Large superficial and deep complex fluid collection left lower leg , worrisome for abscess.
[2016-08-17] MEDS: VANCOMYCIN HCL 1,000 MG in DEXTROSE 5%-WATER 250 ML IV SCH ×2 (11:13→21:38)
[2016-08-18] MEDS: OXYCODONE HCL IR 5 MG TABLET PO PRN ×2 (04:00→11:22)
[2016-08-18] MEDS: OXYCODONE-ACETAMINOPHEN 5-325 MG TABLET PO PRN ×2 (04:01→11:23)
[2016-08-18 06:20] LABS: HEMATOCRIT 31.4 % (37.9-51.0); HEMOGLOBIN 10.6 g/dL (13.5-17.0); HGB HCT DIFFERENCE 0.4; MEAN CORPUSCULAR HEMOGLOBIN 29.5 pg (27.0-33.4); MEAN CORPUSCULAR HGB CONC 33.6 g/dL (32.0-36.0); MEAN CORPUSCULAR VOLUME 88 fl (80-97); RED BLOOD COUNT 3.58 10^6/uL (4.35-5.55); RED CELL DISTRIBUTION WIDTH 15.8 % (11.5-14.0); WHITE BLOOD COUNT 10.1 10^3/uL (4.0-10.5)
[2016-08-18 06:29] LABS: ANION GAP 10 (5-19); BLOOD UREA NITROGEN 17 mg/dL (7-20); CALCIUM 9.6 mg/dL (8.4-10.2); CARBON DIOXIDE 26 mmol/L (22-30); CHLORIDE 103 mmol/L (98-107); CREATININE RESULT 0.86 mg/dL (0.52-1.25); GLUCOSE 104 mg/dL (75-110); POTASSIUM 4.7 mmol/L (3.6-5.0)
[2016-08-18] MEDS: HYDROMORPHONE HCL INJ/PF 2 MG/ML AMPULE IV PRN (08:44)
[2016-08-18] MEDS: NICOTINE 14 MG/24 HR PATCH.TD24 TD SCH (09:38)
[2016-08-18] MEDS: DOCUSATE SODIUM 100 MG CAPSULE PO SCH (09:38)
[2016-08-18] MEDS: MULTIVITAMIN TABLET PO SCH (09:38)
[2016-08-18] MEDS: FERROUS SULFATE 325 MG TABLET PO SCH (09:38)
[2016-08-18] MEDS: VANCOMYCIN HCL 1,000 MG in DEXTROSE 5%-WATER 250 ML IV SCH (09:38)
[2016-08-18] MEDS: FONDAPARINUX SODIUM INJ 2.5 MG/0.5 ML DISP.SYRIN SUBCUT SCH (09:38)
--- NOTE | 2016-08-18 11:04 | DISCHARGE SUMMARY E ---
Discharge Summary NAME: ION HANSEN : 1980 AGE: 36Y ADMITTED: 08/09/2016 DISCHARGED: 08/18/2016 ADMITTING DIAGNOSIS: Left leg trauma and necrotic wound. He was admitted for left leg wound cellulitis. He underwent debridement and was placed on wound VAC and has been on antibiotic therapy. He has been hospitalized for wound care management and also for pain management. Discharge medications include Percocet for pain. He completed more than a week of antibiotic. Right now there is no sepsis, no white count, no fever, no cellulitis except a clean wound and he does not need any more antibiotics. REASON FOR ADMISSION AND HOSPITAL COURSE: The patient sustained a injury and then an infected wound. He was admitted, given IV antibiotic and taken to the operating room. He was given debridement of the wound. The patient has been on a large amount of IV pain medications and oral pain medications, particularly in view of his history of IV drug abuse in the past. The patient denies any current drug abuse, but still patient requiring a large amount of pain medication inconsistent with level of clinical condition which she has claimed, particularly complains about a 9 cm size wound about 2 cm wide and then about 1-2 cm deep. A very clean wound. It is starting to granulate, no purulence, no discharge, no cellulitis around. Otherwise, he is doing very well. He will need wound care at least for another 3-4 weeks before it granulates to the surface level or if it is going to heal by secondary intention; if not, he may need to be referred for a skin graft later on. Discussed with the patient and the patient's family thoroughly about the rest of the care. He will need to have wound care that he can get as an outpatient with a wound VAC and get nurses and also refer to pain management team because his pain level needs to be addressed because of level of pain based on the clinical condition. Referral made through the social security benefits interviewer case management rnmanager civil yesterday to wound care at the [facility] and also possibly home care nurse at home and also pain management. All these referrals were made. The patient wants to go home today and he looks well and clinically stable to be able to go home, so being discharged home with Percocet for pain and to be seen by pain management team and then also he was advised to follow up with the [facility] twice a week. DICTATING PHYSICIAN: SARITA RALPH M.D. [id number] PHY#: [id number] ID: [id number] JOB#: [id number] ACCT: [id number] cc:Radha LYMAN PA > MTDD
[2016-08-18 11:12] VITALS: BP 114/75
== END 2016-08-18 12:00 | disposition home health service (06) | DRG 572 ==
LOC: ER 01:29 → EH 10:03 → UNDOADMIN 10:03 → EH 13:12 → 5 13:12
PROVIDERS: ATTEND Surgery
PROC: 0K9T0ZZ Drainage of Left Lower Leg Muscle, Open Approach (ICD-10-PCS; principal; 2016-08-09 10:45)
PROC: 0JDP3ZZ Extraction of Left Lower Leg Subcutaneous Tissue and Fascia, Percutaneous Approach (ICD-10-PCS; 2016-08-10)
PROC: 0HBLXZZ Excision of Left Lower Leg Skin, External Approach (ICD-10-PCS; 2016-08-11)
PROC: 2W1MX6Z Compression of Left Lower Extremity using Pressure Dressing (ICD-10-PCS; 2016-08-13)
DX: L02.416 Cutaneous abscess of left lower limb (principal); F17.210 Nicotine dependence, cigarettes, uncomplicated
CPT/HCPCS: 36415; 36430; 400; 76881; 80048; 80202; 81001; 82550; 82565; 85025; 85027; 85652; 86850; 86900; 86901; 86920; 87040; 87070; 87075; 87077; 87086; 87186; 87205; 87493; 93971; 99284; J0131; J1100; J1170; J1652; J1885; J2250; J2405; J2704; J3010; J3370; J3490; J7030; J7060; P9016

== ENCOUNTER 2016-08-26 20:05 | Emergency (ER) | payer MEDICAID ==
[2016-08-27] MEDS ORDERED: IBUPROFEN 600 MG TABLET PO ONE (00:27)
[2016-08-27] MEDS ORDERED: ACETAMINOPHEN 325 MG TABLET PO ONE (00:27)
[2016-08-27] MEDS ORDERED: MORPHINE SULFATE IR 30 MG TABLET PO ONE (00:27)
--- NOTE | 2016-08-27 00:31 | ER Document Report ---
ED General - General Chief Complaint: Leg Pain Stated Complaint: LEFT LEG PAIN Time Seen by Provider: 08/26/16 23:47 Notes: Patient is a 36-year-old male who had a large abscess with associated cellulitis of his left distal lower extremity which was excised and drained in the operating room and required a hospitalization at the end of July who presents with ongoing pain to the affected area. He has a large open wound to the medial aspect of the distal left lower extremity and describes a severe, constant, throbbing pain. He states that moving or touching the area worsens the pain. States that he was prescribed oxycodone with acetaminophen for 5 total days after the discharge from the hospital and this moderately controlled his pain. At this point he states he has nothing to treat the pain and that it prevents him from even sleeping. He has not noted any increased drainage from the area, spreading redness, or constitutional symptoms. He did see his surgeon who apparently recommended that he go to a chronic pain management clinic for further prescriptions for pain medications in this context. TRAVEL OUTSIDE OF THE [place] IN LAST 30 DAYS: No - Related Data Allergies/Adverse Reactions: No Known Allergies Allergy (Verified 08/09/16 01:35) Past Medical History - General Information source: Patient - Social History Smoking Status: Former Smoker Frequency of alcohol use: None Drug Abuse: None Lives with: Family Family History: Reviewed & Not Pertinent Renal/ Medical History: Denies: Hx Peritoneal Dialysis - Immunizations Immunizations up to date: Yes Hx Diphtheria, Pertussis, Tetanus Vaccination: Yes Review of Systems - Review of Systems Notes: Constitutional: Negative for fever. HENT: Negative for sore throat. Eyes: Negative for visual changes. Cardiovascular: Negative for chest pain. Respiratory: Negative for shortness of breath. Gastrointestinal: Negative for abdominal pain, vomiting or diarrhea. Genitourinary: Negative for dysuria. Musculoskeletal: Positive for left leg wound. Skin: Negative for rash. Neurological: Negative for headaches, weakness or numbness. 10 point ROS negative except as marked above and in HPI. Physical Exam - Vital signs Vitals: Temp Pulse Resp BP Pulse Ox 98.5 F 107 H 18 117/81 98 08/26/16 21:05 08/26/16 21:05 08/26/16 21:05 08/26/16 21:05 08/26/16 21:05 Interpretation: Tachycardic Notes: PHYSICAL EXAMINATION: GENERAL: Well-appearing, well-nourished and in no acute distress. HEAD: Atraumatic, normocephalic. EYES: sclera anicteric, conjunctiva are normal. ENT: Moist mucous membranes. NECK: Normal range of motion LUNGS: Normal work of breathing HEART: 2+ radial pulses bilaterally EXTREMITIES: There is a large, gaping, well-healing wound to the medial aspect of the distal left lower extremity below the level of the knee extending down to almost the level of the ankle NEUROLOGICAL: No focal neurological deficits. Moves all extremities spontaneously and on command. PSYCH: Normal mood, normal affect. SKIN: Warm, Dry, normal turgor, no rashes or lesions noted. Course - Re-evaluation Re-evalutation: 08/27/16 00:27 Patient presents with a left lower extremity leg wound from a cellulitis with an associated abscess that was incised and drained in the operating room at the end of July. The patient is presenting due to not having any access to pain medications as an outpatient. [place] controlled substance database does indeed confirm that the patient received a total of 5 days supply of Percocet on August 18 and that he is correctly stating that he has been out of pain medications for the past 3 days. He was apparently referred to chronic pain management which seems inappropriate as the patient has an acute injury as opposed to a chronic pain condition. Although this is outside my typical practice, the patient does not have ready access to a primary care physician and has already been declined additional pain medications through the surgical clinic for unclear reasons. The patient is in visible distress secondary to pain and I believe that his symptoms are real given that the wound is wide open although very well in appearance and does not show any evidence of ongoing infection. He is pending a referral to wound management for a wound VAC but this is waiting on Medicaid approval which could take several additional weeks to months. Will prescribe oral morphine tablets and recommend standing ibuprofen and Tylenol. At this time will discharge with return precautions and follow-up recommendations. Verbal discharge instructions given a the bedside and opportunity for questions given. Medication warnings reviewed. Patient is in agreement with this plan and has verbalized understanding of return precautions and the need for primary care follow-up in the next 24-72 hours. - Vital Signs Vital signs: Temp Pulse Resp BP Pulse Ox 98.5 F 101 H 18 130/86 H 99 08/26/16 21:05 08/27/16 00:54 08/27/16 00:54 08/27/16 00:54 08/27/16 00:54 Discharge - Discharge Clinical Impression: Leg pain Qualifiers: Laterality: left Qualified Code(s): M79.605 - Pain in left leg Wound of left lower extremity Qualifiers: Encounter type: subsequent encounter Qualified Code(s): S81.802D - Unspecified open wound, left lower leg, subsequent encounter Condition: Stable Disposition: HOME, SELF-CARE Additional Instructions: For your pain: Take ibuprofen 600 mg and acetaminophen 1000 mg every 6 hours together as needed for pain. If this does not control your pain you may take 15 -30 mg of oral morphine every 4 hours as needed. Please be very careful about using the oral morphine and only use this for severe pain. Follow-up closely with the surgeon regarding your pain. Please also contact the primary care doctor you were referred to for additional assistance with long -term control of your pain and wound. Return if you have worsening pain, spreading redness from the area, pus from the wound, or any other symptoms that are worrisome to you. Prescriptions: Morphine Sulfate [Morphine Ir 15 mg Tablet] 15 - 30 mg PO Q4HP PRN #60 tablet PRN Reason: Referrals: BEKA OSHEA MD [ACTIVE STAFF] - Follow up in 3-5 days
[2016-08-27] MEDS ORDERED: MORPHINE SULFATE IR 30 MG TABLET ONE (00:42)
[2016-08-27 00:56] VITALS: BP 130/86
== END 2016-08-27 01:10 | disposition home or self-care (01) ==
LOC: ER 20:05
DX: M79.605 Pain in left leg (principal); S81.802D Unspecified open wound, left lower leg, subsequent encounter; X58.XXXD Exposure to other specified factors, subsequent encounter; Z87.891 Personal history of nicotine dependence
CPT/HCPCS: 99283

== ENCOUNTER 2016-08-28 23:55 | Emergency (ER) | payer OTHER, MEDICAID ==
[2016-08-29] MEDS ORDERED: OXYCODONE-ACETAMINOPHEN 5-325 MG TABLET PO ONE (00:39)
[2016-08-29 01:05] LABS: ABSOLUTE BASOPHILS # (AUTO) 0.1 10^3/uL (0.0-0.2); ABSOLUTE EOSINOPHILS # (AUTO) 0.1 10^3/uL (0.0-0.6); ABSOLUTE LYMPHOCYTES (AUTO) 2.3 10^3/uL (0.5-4.7); ABSOLUTE MONOCYTES (AUTO) 0.7 10^3/uL (0.1-1.4); ABSOLUTE NEUT (AUTO) 4.3 10^3/uL (1.7-8.2); BASOPHILS % (AUTO) 1.4 % (0-2); EOSINOPHILS % (AUTO) 1.8 % (0-6); HEMATOCRIT 34.7 % (37.9-51.0); HEMOGLOBIN 11.1 g/dL (13.5-17.0); HGB HCT DIFFERENCE -1.4; LYMPHOCYTES % (AUTO) 30.4 % (13-45); MEAN CORPUSCULAR HGB CONC 32.1 g/dL (32.0-36.0); MEAN CORPUSCULAR VOLUME 90 fl (80-97); MONOCYTES % (AUTO) 9.1 % (3-13); RED BLOOD COUNT 3.84 10^6/uL (4.35-5.55); RED CELL DISTRIBUTION WIDTH 16.3 % (11.5-14.0); SEGMENTED NEUTROPHILS % (AUTO) 57.3 % (42-78); WHITE BLOOD COUNT 7.5 10^3/uL (4.0-10.5)
[2016-08-29 01:21] LABS: ANION GAP 10 (5-19); BLOOD UREA NITROGEN 13 mg/dL (7-20); C-REACTIVE PROTEIN 40.2 mg/L (<10.0); CALCIUM 9.6 mg/dL (8.4-10.2); CARBON DIOXIDE 25 mmol/L (22-30); CHLORIDE 107 mmol/L (98-107); CREATININE RESULT 0.85 mg/dL (0.52-1.25); GLUCOSE 105 mg/dL (75-110); POTASSIUM 4.3 mmol/L (3.6-5.0)
[2016-08-29 01:49] LABS: ERYTHROCYTE SEDIMENTATION RATE 32 mm/hr (0-15)
--- NOTE | 2016-08-29 02:01 | ER Document Report ---
ED Wound - General Mode of Arrival: Wheelchair Information source: Patient, [employer] TRAVEL OUTSIDE OF THE [place] IN LAST 30 DAYS: No - HPI Occurred: Other - see HPI notes <ERICA THOMPSON - Last Filed: 08/29/16 03:07> <SHREYASLALITHA ANN - Last Filed: 08/29/16 04:07> - General Stated Complaint: LEG INJURY Time Seen by Provider: 08/29/16 00:15 Notes: Patient is a 36 year old male presenting to the emergency department for a increased pain to a wound on his left leg. Patient was seen on 08/09/16 and was sent to the OR for this wound to be opened and cleaned. Patient presents to the emergency department on 08/26/16 for pain to this area and was discharged with pain medications. Patient returns today with the [facility]'s deputy for increased pain to his leg and foot. Patient states he is not being given his pain medications that he was prescribed because he is now in [facility]. Patient states the [facility] nurse could not feel a pulse in his leg or foot. Patient states he was not given any antibiotics after being discharged on 08/09/16. Patient states he did receive IV antibiotics while being in the hospital. Patient also has a history of MRSA. (ERICA THOMPSON) - Related Data Allergies/Adverse Reactions: No Known Allergies Allergy (Verified 08/29/16 01:05) Past Medical History - General Information source: Patient - Social History Smoking Status: Current Every Day Smoker Chew tobacco use (# tins/day): No Frequency of alcohol use: None Drug Abuse: None Family History: None Patient has suicidal ideation: No Patient has homicidal ideation: No Skin Medical History: Reports Hx MRSA Surgical Hx: Negative - Immunizations Immunizations up to date: Yes Hx Diphtheria, Pertussis, Tetanus Vaccination: Yes <ERICA THOMPSON - Last Filed: 08/29/16 03:07> Review of Systems - Review of Systems Constitutional: No symptoms reported EENT: No symptoms reported Cardiovascular: No symptoms reported Respiratory: No symptoms reported Gastrointestinal: No symptoms reported Genitourinary: No symptoms reported Male Genitourinary: No symptoms reported Musculoskeletal: No symptoms reported Skin: See HPI Hematologic/Lymphatic: No symptoms reported Neurological/Psychological: No symptoms reported -: Yes All other systems reviewed and negative <ERICA THOMPSON - Last Filed: 08/29/16 03:07> Physical Exam - Vital signs Interpretation: Normal - General General appearance: Appears well, Alert In distress: Mild - HEENT Head: Normocephalic, Atraumatic Eyes: Normal Pupils: PERRL Mucous membranes: Moist - Respiratory Respiratory status: No respiratory distress - Cardiovascular Rhythm: Regular - Abdominal Inspection: Normal - Back Back: Normal, Nontender - Extremities General upper extremity: Normal inspection, Normal ROM, Normal strength Calf: Other - large open wound to left leg with tendon exposure - Neurological Neuro grossly intact: Yes Cognition: Normal Orientation: AAOx4 Keisha Coma Scale Eye Opening: Spontaneous [place] Coma Scale Verbal: Oriented Keisha Coma Scale Motor: Obeys Commands Keisha Coma Scale Total: 15 Speech: Normal Sensory: Normal - Psychological Associated symptoms: Normal affect, Normal mood - Skin Skin Temperature: Warm Skin Moisture: Dry <ERICA THOMPSON - Last Filed: 08/29/16 03:07> - Extremities General upper extremity: Other - no erythema or warmth. No: Normal inspection Calf: Other. No: Ecchymosis Foot: Other - Excellent dorsalis pedis pulse, bounding bl <LALITHA PRITCHETT - Last Filed: 08/29/16 04:07> - Vital signs Vitals: Temp Pulse Resp BP Pulse Ox 98.6 F 95 20 118/72 96 08/29/16 00:22 08/29/16 00:22 08/29/16 00:22 08/29/16 00:22 08/29/16 00:22 Course - Laboratory Result Diagrams: 08/29/16 00:52 08/29/16 00:52 <ERICA THOMPSON - Last Filed: 08/29/16 03:07> - Laboratory Result Diagrams: 08/29/16 00:52 08/29/16 00:52 <LALITHA PRITCHETT - Last Filed: 08/29/16 04:07> - Re-evaluation Re-evalutation: 08/29/16 04:04 Large leg wound to his left medial leg. It does not appear infected. Patient is afebrile with stable vitals. Leg has an excellent pulse. Good granulation tissue. No surrounding erythema. Blood work within normal limits. Patient was arrested and in [facility] for apparently driving a vehicle under the influence. He is not able to get pain medication in [facility] at this time. He will have to take Tylenol and ibuprofen until he is released from [facility]. The patient was supposed to follow-up in the wound care clinic today but was unable to because he was incarcerated. The pattern grader supervisor assures me that the patient will get follow- up with the wound care clinic while in [facility] or else when he is released if that is soon. Again, no evidence for infection. Recent Doppler showed no evidence for DVT. Wound has been sent for culture. It has been cleaned and dressed. Stable for discharge. (LALITHA PRITCHETT) - Vital Signs Vital signs: Temp Pulse Resp BP Pulse Ox 98.1 F 64 18 124/78 100 08/29/16 03:15 08/29/16 03:15 08/29/16 03:15 08/29/16 03:15 08/29/16 03:15 - Laboratory Laboratory results interpreted by me: 08/29/16 08/29/16 00:52 00:52 RBC 3.84 L Hgb 11.1 L Hct 34.7 L RDW 16.3 H ESR 32 H C-Reactive Protein 40.2 H Discharge <ERICA THOMPSON - Last Filed: 08/29/16 03:07> <LALITHA PRITCHETT - Last Filed: 08/29/16 04:07> - Discharge Clinical Impression: Leg pain, left Wound of left lower extremity Qualifiers: Encounter type: subsequent encounter Qualified Code(s): S81.802D - Unspecified open wound, left lower leg, subsequent encounter Condition: Stable Disposition: HOME, SELF-CARE Instructions: Delayed Wound Closure ([facility]) Additional Instructions: A culture of your wound has been sent. Please follow-up in the wound clinic. They can check the wound culture there. We are going to hold off on antibiotics at this time. Please take ibuprofen as needed for pain while you are in [facility]. Referrals: Wound Care [Provider Group] - Follow up tomorrow Scribe Attestation: 08/29/16 04:05 I personally performed the services described in the documentation, reviewed and edited the documentation which was dictated to the scribe in my presence, and it accurately records my words and actions. (LALITHA PRITCHETT) Scribe Documentation - Scribe Written by Scribe:: Frederick Aguilar 08/29/16 2:30 acting as scribe for :: Shreyas <ERICA THOMPSON - Last Filed: 08/29/16 03:07>
[2016-08-29 03:24] VITALS: BP 124/78
== END 2016-08-29 03:15 | disposition home or self-care (01) ==
LOC: ER 23:55
DX: M79.605 Pain in left leg (principal); S81.802D Unspecified open wound, left lower leg, subsequent encounter; X58.XXXD Exposure to other specified factors, subsequent encounter; F17.200 Nicotine dependence, unspecified, uncomplicated; Z86.14 Personal history of Methicillin resistant Staphylococcus aureus infection
CPT/HCPCS: 36415; 80048; 85025; 85652; 86140; 87070; 87077; 87186; 87205; 99284

== ENCOUNTER 2016-09-05 18:08 | Emergency (ER) | payer MEDICAID ==
[2016-09-05] MEDS ORDERED: PROMETHAZINE HCL 25 MG TABLET PO ONE (19:26)
[2016-09-05] MEDS ORDERED: IBUPROFEN 600 MG TABLET PO ONE (19:26)
[2016-09-05] MEDS ORDERED: OXYCODONE-ACETAMINOPHEN 5-325 MG TABLET PO ONE (19:26)
--- NOTE | 2016-09-05 19:26 | ER Document Report ---
ED Medical Screen (RME) - General Chief Complaint: Wound Infection Stated Complaint: LEG PAIN Time Seen by Provider: 09/05/16 19:25 Notes: Patient had a bad abscess of the left lower leg about a month ago. He was admitted to this hospital and underwent what appears to be almost a fasciotomy of the inner aspect of the left lower leg. He was discharged home 3 weeks ago and had been doing well, but yesterday noted that when he change the bandage, which he does daily, he noted a foul smell and also noticed a color change in the wound to some yellow areas from the normal white. He is complaining of severe pain. Missed his appointment with the surgeons because of having to go to intermediate for a probation violation. Denies fever. TRAVEL OUTSIDE OF THE [place] IN LAST 30 DAYS: No - Related Data Allergies/Adverse Reactions: No Known Allergies Allergy (Verified 09/05/16 19:02) Past Medical History Renal/ Medical History: Denies: Hx Peritoneal Dialysis Skin Medical History: Reports Hx MRSA - Immunizations Immunizations up to date: Yes Hx Diphtheria, Pertussis, Tetanus Vaccination: Yes Physical Exam - Vital signs Vitals: Temp Pulse Resp BP Pulse Ox 97.3 F 106 H 18 126/81 H 100 09/05/16 18:18 09/05/16 18:18 09/05/16 18:18 09/05/16 18:18 09/05/16 18:18 Course - Vital Signs Vital signs: Temp Pulse Resp BP Pulse Ox 97.3 F 106 H 18 126/81 H 100 09/05/16 18:18 09/05/16 18:18 09/05/16 18:18 09/05/16 18:18 09/05/16 18:18
[2016-09-05 20:04] LABS: ABSOLUTE EOSINOPHILS # (AUTO) 0.2 10^3/uL (0.0-0.6); ABSOLUTE LYMPHOCYTES (AUTO) 3.4 10^3/uL (0.5-4.7); ABSOLUTE MONOCYTES (AUTO) 0.8 10^3/uL (0.1-1.4); BASOPHILS % (AUTO) 0.3 % (0-2); EOSINOPHILS % (AUTO) 2.8 % (0-6); HEMATOCRIT 38.6 % (37.9-51.0); HEMOGLOBIN 12.5 g/dL (13.5-17.0); HGB HCT DIFFERENCE -1.1; LYMPHOCYTES % (AUTO) 40.3 % (13-45); MEAN CORPUSCULAR HEMOGLOBIN 28.9 pg (27.0-33.4); MEAN CORPUSCULAR HGB CONC 32.4 g/dL (32.0-36.0); MEAN CORPUSCULAR VOLUME 89 fl (80-97); MONOCYTES % (AUTO) 9.4 % (3-13); RED BLOOD COUNT 4.33 10^6/uL (4.35-5.55); RED CELL DISTRIBUTION WIDTH 15.6 % (11.5-14.0); SEGMENTED NEUTROPHILS % (AUTO) 47.2 % (42-78); WHITE BLOOD COUNT 8.5 10^3/uL (4.0-10.5)
[2016-09-05 20:16] LABS: ALANINE AMINOTRANSFERASE 20 U/L (21-72); ALBUMIN 3.9 g/dL (3.5-5.0); ALKALINE PHOSPHATASE 87 U/L (38-126); ANION GAP 13 (5-19); ASPARTATE AMINO TRANSFERASE 14 U/L (17-59); BILIRUBIN,DIRECT 0.3 mg/dL (0.0-0.4); BILIRUBIN,TOTAL 0.4 mg/dL (0.2-1.3); BLOOD UREA NITROGEN 14 mg/dL (7-20); CALCIUM 9.8 mg/dL (8.4-10.2); CARBON DIOXIDE 25 mmol/L (22-30); CHLORIDE 106 mmol/L (98-107); CREATININE RESULT 1.07 mg/dL (0.52-1.25); GLUCOSE 84 mg/dL (75-110); POTASSIUM 4.6 mmol/L (3.6-5.0); SODIUM 144.4 mmol/L (137-145); TOTAL PROTEIN 7.6 g/dL (6.3-8.2)
[2016-09-05] MEDS ORDERED: VANCOMYCIN HCL INJ 1000 MG VIAL IV ONE (21:30)
[2016-09-05] MEDS ORDERED: CEFTRIAXONE 1 GM/D5W RTU 50 ML IV ONE (21:31)
--- NOTE | 2016-09-05 21:47 | ER Document Report ---
ED Wound - General Mode of Arrival: Ambulatory Information source: Patient, [facility] Records TRAVEL OUTSIDE OF THE [place] IN LAST 30 DAYS: No - HPI Patient complains to provider of: Wound infection Onset/Duration: Gradual, Worse Associated Symptoms: Other - See narrative <LUIS BLANCO - Last Filed: 09/05/16 23:24> <INEZVIRGILMATTHIEU - Last Filed: 09/06/16 01:01> - General Chief Complaint: Wound Infection Stated Complaint: LEG PAIN Time Seen by Provider: 09/05/16 19:25 Notes: Patient is a 36-year-old male presenting to the emergency department concerned that there may be an infection to the wound over his left lower extremity. Patient has noticed an odor to the wound and increasing erythema. Patient denies fever, although admits that he has not taken his temperature due to feeling so badly. Patient previously had surgery August 09, 2016 to incise and drain an abscess with extensive debridement. Since then, patient has been prescribed Bactrim 2 twice daily 09/01/2016. Patient states that he missed his appointment last week at the wound care clinic secondary to going to nursing home for probation violation and complains of significant pain since running out of his narcotics. (LUIS BLANCO) - Related Data Allergies/Adverse Reactions: No Known Allergies Allergy (Verified 09/05/16 19:02) Home Medications: Current Home Medications Vancomycin HCl 250 mg PO Q12H 09/05/16 [History] Past Medical History - General Information source: Patient, [facility] Records - Social History Smoking Status: Current Every Day Smoker Cigarette use (# per day): Yes Chew tobacco use (# tins/day): No Frequency of alcohol use: None Drug Abuse: None Family History: Reviewed & Not Pertinent Skin Medical History: Reports Hx MRSA Past Surgical History: Reports: Other - I&D with extensive debridement of wound on left lower extremity 08/09/2016 - Immunizations Immunizations up to date: Yes Hx Diphtheria, Pertussis, Tetanus Vaccination: Yes <LUIS BLANCO - Last Filed: 09/05/16 23:24> Review of Systems - Review of Systems Constitutional: No symptoms reported EENT: No symptoms reported Cardiovascular: No symptoms reported Respiratory: No symptoms reported Gastrointestinal: No symptoms reported Genitourinary: No symptoms reported Male Genitourinary: No symptoms reported Musculoskeletal: No symptoms reported Skin: See HPI, Change in color - Left calf wound with odor and pain Hematologic/Lymphatic: No symptoms reported Neurological/Psychological: No symptoms reported -: Yes All other systems reviewed and negative <LUIS BLANCO - Last Filed: 09/05/16 23:24> Physical Exam <LUIS BLANCO - Last Filed: 09/05/16 23:24> <MATTHIEU PINZON - Last Filed: 09/06/16 01:01> - Vital signs Vitals: Temp Pulse Resp BP Pulse Ox 97.3 F 106 H 18 126/81 H 100 09/05/16 18:18 09/05/16 18:18 09/05/16 18:18 09/05/16 18:18 09/05/16 18:18 - Notes Notes: GENERAL: Alert, interacts well. No acute distress. HEAD: Normocephalic, atraumatic. EYES: Pupils equal, round, and reactive to light. Extraocular movements intact. ENT: Oral mucosa moist, tongue midline. NECK: Full range of motion. Supple. Trachea midline. LUNGS: No respiratory distress. ABDOMEN: Non-distended. EXTREMITIES: 25 cm x 5 cm (at widest) wound over left medial calf with exposed muscle and tendon, good granulation tissue, surrounding erythema 5 cm posteriorly and 1 cm anteriorly. Exposed tendon slightly discolored and dry. Left leg and foot swollen, No pitting edema, radial and dorsalis pedis pulses 2/ 4 bilaterally. Moves all 4 extremities spontaneously. NEUROLOGICAL: Alert and oriented x3. Normal speech. PSYCH: Normal affect, normal mood. SKIN: Warm, dry, normal turgor. See extremity exam. (LUIS BLANCO) Course - Laboratory Result Diagrams: 09/05/16 19:48 09/05/16 19:48 - Consults Dr. Fisher Time consulted: 21:29 <LUIS BLANCO - Last Filed: 09/05/16 23:24> - Laboratory Result Diagrams: 09/05/16 19:48 09/05/16 19:48 <MATTHIEU PINZON - Last Filed: 09/06/16 01:01> - Re-evaluation Re-evalutation: 09/05/16 23:15 Patient updated on plan of care, awaiting examination by surgeon, patient has been started on IV antibiotics. When he was rechecked the patient was sleeping , no apparent pain. 09/06/16 00:36 There is no leukocytosis, no left shift, there is only mild anemia with hemoglobin 12.5, chemistries grossly unremarkable. Blood cultures and wound cultures are pending. Patient was started on IV antibiotics, patient continues to have no apparent pain while sleeping in his room. I continue to wait for the surgeon to recheck the patient to see if he feels the patient would need further debridement or he will only need IV antibiotics. 09/06/16 00:53 Seen and examined at bedside by Dr. Fisher, requested the patient receive a Doppler ultrasound to rule out DVT. Patient will be given shot of Lovenox here , given prescription and order form for duplex ultrasound in the morning as we do not have venous Doppler at night. Discharged home and asked to continue taking his Bactrim that was prescribed on the . (MATTHIEU PINZON) - Vital Signs Vital signs: Temp Pulse Resp BP Pulse Ox 97.3 F 106 H 18 126/81 H 100 09/05/16 18:18 09/05/16 18:18 09/05/16 18:18 09/05/16 18:18 09/05/16 18:18 - Laboratory Laboratory results interpreted by me: 09/05/16 09/05/16 19:48 19:48 RBC 4.33 L Hgb 12.5 L RDW 15.6 H AST 14 L ALT 20 L - Consults Dr. Fisher Reason for consultation: 09/05/16 21:[address] Fisher to discuss patient's case. Dr. Fisher's nurse answered stating Dr. Fisher is in surgery and will call back when no longer scrubbed in. 09/05/16 23:20 Dr. Fisher still in surgery, but agrees to come see the patient in the ED when he finishes. (LUIS BLANCO) Discharge <LUIS BLANCO - Last Filed: 09/05/16 23:24> <MATTHIEU PINZON - Last Filed: 09/06/16 01:01> - Discharge Clinical Impression: Chronic wound left leg Cellulitis Qualifiers: Site of cellulitis: extremity Site of cellulitis of extremity: lower extremity Laterality: left Qualified Code(s): L03.116 - Cellulitis of left lower limb Condition: Stable Disposition: HOME, SELF-CARE Additional Instructions: Please return in the morning to have an ultrasound performed of your leg to look for blood clot. Please follow-up with the wound care clinic as previously directed. It is important that you call them to reschedule your appointment in order to receive your wound VAC or other further interventions as necessary. Please take your Bactrim (trimethoprim/sulfamethoxazole) as previously prescribed on the until it is gone. Make sure you are applying and changing wet-to-dry dressings daily. Please use ibuprofen (Motrin or Advil) 600-800 mg every 8 hours as needed for pain or fever. You may also use acetaminophen (Tylenol) 1000 mg every 4-6 hours as needed for pain or fever. Please be aware that many medications contain acetaminophen, do not exceed a total of 1000 mg of acetaminophen every 6 hours. Forms: Follow-Up Outpatient Testing Scribe Attestation: 09/06/16 00:59 I personally performed the services described in the documentation, reviewed and edited the documentation which was dictated to the scribe in my presence, and it accurately records my words and actions. (MATTHIEU PINZON) Scribe Documentation - Scribe Written by Frederick:: Frederick Mccabe, 09/05/2016 2130 acting as scribe for :: Meliza <LUIS BLANCO - Last Filed: 09/05/16 23:24>
[2016-09-06] MEDS ORDERED: ENOXAPARIN SODIUM INJ 80 MG/0.8 ML DISP.SYRIN SUBCUT ONE (00:45)
--- NOTE | 2016-09-06 00:50 | PDOC CONSULTATION ---
History of Present Illness Patient complains of: left leg pain History of Present Illness: ION HANSEN JR is a 36 year old male s/p left medial calf debridement last month. Patient was discharged to home about 2-3 weeks ago. He missed his follow-up appointment. Patient noticed an odor to the wound and the wound was swabbed which grew out MRSA. Patient was placed on Septra. Patient comes in for evaluation of the wound. Has noticed diffuse swelling of his foot as well. Past Surgical History Past Surgical History: Reports: Other - I&D with extensive debridement of wound on left lower extremity 08/09/2016 Social History Smoking Status: Current Every Day Smoker Frequency of Alcohol Use: None Hx Recreational Drug Use: No - history Hx Prescription Drug Abuse: No Family History Family History: Reviewed & Not Pertinent Parental Family History Reviewed: No Children Family History Reviewed: No Sibling(s) Family History Reviewed.: No Medication/Allergy Home Medications: Morphine Sulfate [Morphine Ir 15 mg Tablet] 15 - 30 mg PO Q4HP PRN #60 tablet Vancomycin HCl 250 mg PO Q12H 09/05/16 Allergies/Adverse Reactions: No Known Allergies Allergy (Verified 09/05/16 19:02) Physical Exam Vital Signs: Temp Pulse Resp BP Pulse Ox 97.3 F 106 H 18 126/81 H 100 09/05/16 18:18 09/05/16 18:18 09/05/16 18:18 09/05/16 18:18 09/05/16 18:18 Intake & Output 09/04/16 09/05/16 09/06/16 06:59 06:59 06:59 Weight 72.575 kg Extremities exam: PRESENT: other - Left lower leg with open wound along the medial aspect of his calf with exposed muscle and tendon with beefy red granulation tissue with no fluctuance and no purulent drainage. No necrotic tissue. There is a subtle erythema in the surrounding skin but no blistering and no fluctuance no purulent drainage. The left lower leg is diffusely edematous as is the foot. Results Laboratory Results: 09/05/16 19:48 09/05/16 19:48 09/05/16 09/05/16 19:48 19:48 WBC 8.5 RBC 4.33 L Hgb 12.5 L Hct 38.6 MCV 89 MCH 28.9 MCHC 32.4 RDW 15.6 H Plt Count 406 Seg Neutrophils % 47.2 Lymphocytes % 40.3 Monocytes % 9.4 Eosinophils % 2.8 Basophils % 0.3 Absolute Neutrophils 4.0 Absolute Lymphocytes 3.4 Absolute Monocytes 0.8 Absolute Eosinophils 0.2 Absolute Basophils 0.0 Sodium 144.4 Potassium 4.6 Chloride 106 Carbon Dioxide 25 Anion Gap 13 BUN 14 Creatinine 1.07 Est GFR ( Amer) > 60 Est GFR (Non-Af Amer) > 60 Glucose 84 Calcium 9.8 Total Bilirubin 0.4 AST 14 L ALT 20 L Alkaline Phosphatase 87 Total Protein 7.6 Albumin 3.9 Assessment & Plan - Diagnosis (1) Cellulitis Qualifiers: Laterality: left Is this a current diagnosis for this admission?: YesPlan: Patient had a debridement of his left medial lower leg last month and the debridement site is granulating although the wound is very wide. There is no evidence of abscess. There is mild surrounding cellulitis but I believe this can be treated as an outpatient as long as he takes his Septra. He does have diffuse swelling of his left lower leg and foot and we need to rule out a deep venous thrombosis with a duplex study. If the duplex study is negative then may discharge patient home on Septra and local wound care with follow-up with the wound care clinic. Patient would benefit from a wound VAC that can be applied at the wound care clinic.
[2016-09-06 01:32] VITALS: BP 125/74
== END 2016-09-06 01:30 | disposition home or self-care (01) ==
LOC: ER 18:08
DX: L03.116 Cellulitis of left lower limb (principal); B95.62 Methicillin resistant Staphylococcus aureus infection as the cause of diseases classified elsewhere; M79.662 Pain in left lower leg; Z98.890 Other specified postprocedural states; D64.9 Anemia, unspecified; F17.210 Nicotine dependence, cigarettes, uncomplicated
CPT/HCPCS: 99284; 96372; 96375; 96365; 36415; 87040; 87070; 87205; 85025; 87077; 80053; 87186; J3490 ×2; J3370; J1650; J0696

== ENCOUNTER 2016-09-06 13:26 | Emergency (ER) | payer MEDICAID ==
[2016-09-06] MEDS ORDERED: OXYCODONE-ACETAMINOPHEN 5-325 MG TABLET PO ONE (14:16)
--- NOTE | 2016-09-06 14:19 | ER Document Report ---
ED Medical Screen (RME) - General Chief Complaint: Wound Recheck Stated Complaint: POST OP COMPLAINT Time Seen by Provider: 09/06/16 14:12 TRAVEL OUTSIDE OF THE [place] IN LAST 30 DAYS: No - HPI Patient complains to provider of: left leg wound Onset/Duration: Persistent Quality of pain: Achy Severity: Moderate Pain Level: 4 Exacerbated by: Movement Relieved by: Denies Similar symptoms previously: Yes Recently seen / treated by doctor: Yes Notes: 09/06/16 14:18 Patient had a bad abscess of the left lower leg about a month ago. He was admitted to this hospital and underwent what appears to be almost a fasciotomy of the inner aspect of the left lower leg. He was discharged home 3 weeks ago and had been doing well, but 2 days ago noted that when he change the bandage, which he does daily, he noted a foul smell and also noticed a color change in the wound to some yellow areas from the normal white. He is complaining of severe pain. Missed his appointment with the surgeons because of having to go to [facility] a probation violation. Denies fever. Today patient attempted to see Dr. Rodriguez for this, when he removed a bandage he reports parts of his tendon came off with the bandage - Related Data Allergies/Adverse Reactions: No Known Allergies Allergy (Verified 09/06/16 13:35) Past Medical History Renal/ Medical History: Denies: Hx Peritoneal Dialysis Skin Medical History: Reports Hx MRSA Past Surgical History: Reports: Other - I&D with extensive debridement of wound on left lower extremity 08/09/2016 - Immunizations Immunizations up to date: Yes Hx Diphtheria, Pertussis, Tetanus Vaccination: Yes Physical Exam - Vital signs Vitals: Temp Pulse Resp BP Pulse Ox 97.9 F 110 H 18 104/89 H 100 09/06/16 13:35 09/06/16 13:35 09/06/16 13:35 09/06/16 13:35 09/06/16 13:35 Course - Vital Signs Vital signs: Temp Pulse Resp BP Pulse Ox 97.9 F 110 H 18 104/89 H 100 09/06/16 13:35 09/06/16 13:35 09/06/16 13:35 09/06/16 13:35 09/06/16 13:35
[2016-09-06 16:23] LABS: ABSOLUTE BASOPHILS # (AUTO) 0.1 10^3/uL (0.0-0.2); ABSOLUTE EOSINOPHILS # (AUTO) 0.3 10^3/uL (0.0-0.6); ABSOLUTE MONOCYTES (AUTO) 0.7 10^3/uL (0.1-1.4); ABSOLUTE NEUT (AUTO) 3.6 10^3/uL (1.7-8.2); BASOPHILS % (AUTO) 1.3 % (0-2); EOSINOPHILS % (AUTO) 3.5 % (0-6); HEMATOCRIT 35.4 % (37.9-51.0); HEMOGLOBIN 11.4 g/dL (13.5-17.0); HGB HCT DIFFERENCE -1.2; LYMPHOCYTES % (AUTO) 39.4 % (13-45); MEAN CORPUSCULAR HEMOGLOBIN 28.7 pg (27.0-33.4); MEAN CORPUSCULAR HGB CONC 32.3 g/dL (32.0-36.0); MEAN CORPUSCULAR VOLUME 89 fl (80-97); MONOCYTES % (AUTO) 8.7 % (3-13); RED BLOOD COUNT 3.98 10^6/uL (4.35-5.55); RED CELL DISTRIBUTION WIDTH 15.7 % (11.5-14.0); SEGMENTED NEUTROPHILS % (AUTO) 47.1 % (42-78); WHITE BLOOD COUNT 7.7 10^3/uL (4.0-10.5)
--- NOTE | 2016-09-06 16:34 | XCELERA REPORT ---
[address] [address] Lower Extremity Venous Evaluation Name: INO HANSEN JR Age: 36 yrs Gender: Male : 1980 Patient Status: Preadmit Patient Location: ER Study Date: 09/06/2016 02:41 PM Procedure: Color flow and duplex imaging of the veins of the left lower extremity as well as the right Common Femoral vein. Reason For Study: LLE swelling Ordering Physician: LANG THOMSON Performed By: Soham Mckenna Right Sided Venous Evaluation The right common femoral vein is fully compressible. Spontaneous and phasic flow is present in the right common femoral vein. Left Sided Venous Evaluation Triphasic arterial waveform in the Dorsalis Pedis artery. Normal vessel filling wall to wall, compression and augmentation as well as Colour flow down to the infrageniculate veins. Critical Findings Called in to the ER at about 1500. Interpretation Summary No duplex evidence of DVT or obstruction in the left lower extremity nor in the right Common Femoral vein. : LANG THOMSON > Luisito Corado
--- NOTE | 2016-09-06 16:47 | ER Document Report ---
ED Wound - General Chief Complaint: Wound Recheck Stated Complaint: POST OP COMPLAINT Time Seen by Provider: 09/06/16 14:12 Mode of Arrival: Ambulatory Information source: Patient TRAVEL OUTSIDE OF THE [place] IN LAST 30 DAYS: No - HPI Patient complains to provider of: Wound infection - This is a 36-year-old male who had debridement of an abscess approximately a month ago. He has followed up in the department and been scheduled with wound care multiple times since that visit. Fact he was here 2 AM this morning. Upon arrival triage stated that he was here concerned that he may have a blood clot to his left lower extremity. The provider in triage did not fact order an ultrasound for that. - Related Data Allergies/Adverse Reactions: No Known Allergies Allergy (Verified 09/06/16 13:35) Past Medical History - Social History Smoking Status: Current Every Day Smoker Chew tobacco use (# tins/day): No Frequency of alcohol use: None Drug Abuse: None Family History: Reviewed & Not Pertinent Patient has suicidal ideation: No Patient has homicidal ideation: No Renal/ Medical History: Denies: Hx Peritoneal Dialysis Skin Medical History: Reports Hx MRSA Past Surgical History: Reports: Other - I&D with extensive debridement of wound on left lower extremity 08/09/2016 - Immunizations Immunizations up to date: Yes Hx Diphtheria, Pertussis, Tetanus Vaccination: Yes Review of Systems - Review of Systems Constitutional: No symptoms reported EENT: No symptoms reported Cardiovascular: No symptoms reported Respiratory: No symptoms reported Gastrointestinal: No symptoms reported Genitourinary: No symptoms reported Male Genitourinary: No symptoms reported Musculoskeletal: No symptoms reported Skin: No symptoms reported Hematologic/Lymphatic: No symptoms reported Neurological/Psychological: No symptoms reported Physical Exam - Vital signs Vitals: Temp Pulse Resp BP Pulse Ox 97.9 F 110 H 18 104/89 H 100 09/06/16 13:35 09/06/16 13:35 09/06/16 13:35 09/06/16 13:35 09/06/16 13:35 Interpretation: Normal - General General appearance: Appears well, Alert - HEENT Head: Normocephalic, Atraumatic Eyes: Normal Pupils: PERRL - Respiratory Respiratory status: No respiratory distress Chest status: Nontender Breath sounds: Normal Chest palpation: Normal - Cardiovascular Rhythm: Regular Heart sounds: Normal auscultation Murmur: No - Abdominal Inspection: Normal Distension: No distension Bowel sounds: Normal Tenderness: Nontender Organomegaly: No organomegaly - Back Back: Normal, Nontender - Extremities General upper extremity: Normal inspection, Nontender, Normal color, Normal ROM , Normal temperature General lower extremity: Normal inspection, Nontender, Normal color, Normal ROM , Normal temperature, Normal weight bearing. No: Perla's sign - Neurological Neuro grossly intact: Yes Cognition: Normal Orientation: AAOx4 [place] Coma Scale Eye Opening: Spontaneous Keisha Coma Scale Verbal: Oriented [place] Coma Scale Motor: Obeys Commands [place] Coma Scale Total: 15 Speech: Normal Motor strength normal: LUE, RUE, LLE, RLE Sensory: Normal - Psychological Associated symptoms: Normal affect, Normal mood - Skin Skin Temperature: Warm Skin Moisture: Dry Skin Color: Normal Course - Re-evaluation Re-evalutation: 09/06/16 16:46 Abdomen abundance precaution a CBC was done here in the department patient did not have an elevated white count. A wound culture was sent from the department today however the lab called me and indicated that they have had a wound culture for each day of the last 3 days. And did give me some preliminary results from the one drawn day before yesterday yesterday and had one cooking from 2:00 this morning. Point of time that wound culture was in fact canceled. They did suggest that there was a staph infection some MRSA gram-negative rods which did not resemble Pseudomonas. The patient does have wound care follow-up this Friday. It should be noted that he had wound care last Friday and stated that he could not make that appointment because he was detained in fact he was arrested on Friday for stealing a golf cart he crashed it and when the police tried to arrest him he told them that his leg was hurting and he presented here as a patient. Patient advocate was summoned to discuss care and potential modalities with the patient as the patient yelling and threatening lawsuits. Patient advocate was well familiar with him as she is the one who set up his wound care and got him Medicaid and orchestrated his outpatient care that he is yet to follow-up with to this point. 09/06/16 17:00 - Vital Signs Vital signs: Temp Pulse Resp BP Pulse Ox 97.9 F 110 H 18 104/89 H 100 09/06/16 13:35 09/06/16 13:35 09/06/16 13:35 09/06/16 13:35 09/06/16 13:35 - Laboratory Result Diagrams: 09/06/16 15:43 Laboratory results interpreted by me: 09/06/16 15:43 RBC 3.98 L Hgb 11.4 L Hct 35.4 L RDW 15.7 H - Diagnostic Test Radiology reviewed: Image reviewed, Reports reviewed Discharge - Discharge Clinical Impression: MRSA (methicillin resistant staph aureus) culture positive Cellulitis Qualifiers: Site of cellulitis: extremity Site of cellulitis of extremity: lower extremity Laterality: left Qualified Code(s): L03.116 - Cellulitis of left lower limb Condition: Fair Disposition: HOME, SELF-CARE Additional Instructions: MRSA Cellulitis You have an infection of your skin and underlying soft tissues called cellulitis. This is due to bacteria, which can enter through any break in the skin, or even through an irritated hair follicle. Untreated, cellulitis will usually worsen and may form an abscess which requires draining. Although many bacterial organisms can cause cellulitis and abscess formations, the most likely bacteria is Methicillin-Resistant Staph Aureus, or MRSA for short. Antibiotics are required. Usually, warm packs or warm soaks, and elevation of the infected area are recommended. You should start getting better within 24 to 36 hours. Most infections respond quickly to the right medication. Follow-up care is important, however, to check for abscess (boil) formation, unsuspected foreign body, or resistant infection. If you develop fever, chills, or if the area of infection is becoming rapidly more swollen or painful, call the doctor at once. Follow-up with wound care as scheduled on Friday. Return for any change or worsening condition. Prescriptions: Cephalexin Monohydrate [Keflex 500 mg Capsule] 500 mg PO BID #20 capsule
[2016-09-06 17:10] VITALS: BP 124/68
== END 2016-09-06 17:15 | disposition home or self-care (01) ==
LOC: ER 13:26
DX: A49.02 Methicillin resistant Staphylococcus aureus infection, unspecified site (principal); L03.116 Cellulitis of left lower limb; F17.200 Nicotine dependence, unspecified, uncomplicated
CPT/HCPCS: 36415; 85025; 93971; 99284

== ENCOUNTER 2016-10-07 23:05 | Emergency (ER) | payer MEDICAID ==
[2016-10-08] MEDS ORDERED: MORPHINE SULFATE IR 15 MG TABLET PO ONE (00:46)
[2016-10-08] MEDS ORDERED: ACETAMINOPHEN 325 MG TABLET PO ONE (00:47)
[2016-10-08] MEDS ORDERED: CEPHALEXIN 500 MG CAPSULE PO ONE (00:47)
[2016-10-08] MEDS ORDERED: SULFAMETHOXAZOLE/TRIMETHOPRIM 800-160 MG TABLET PO ONE (00:47)
--- NOTE | 2016-10-08 00:48 | ER Document Report ---
ED General - General Stated Complaint: LEFT FOOT PAIN Time Seen by Provider: 10/08/16 00:23 Notes: Patient is a 36-year-old male who presents with increasing pain and drainage from his left distal lower extremity wound. Patient had a fasciotomy secondary to abscess 6 weeks ago and has been having routine healing as an outpatient since that time. States over the last 24 hours he has developed a severe, constant, throbbing pain to the area. Moving the foot worsens the pain. Nothing improves the pain. States this started shortly after he finished his antibiotics from the most recent emergency department visit. Denies any fever or constitutional symptoms. He is currently in detention and was referred by the nursing staff there. TRAVEL OUTSIDE OF THE [place] IN LAST 30 DAYS: No - Related Data Allergies/Adverse Reactions: No Known Allergies Allergy (Verified 09/06/16 13:35) Past Medical History - General Information source: Patient - Social History Smoking Status: Former Smoker Frequency of alcohol use: None Drug Abuse: None Lives with: Other - [facility] Family History: Reviewed & Not Pertinent Renal/ Medical History: Denies: Hx Peritoneal Dialysis Skin Medical History: Reports Hx MRSA Past Surgical History: Reports: Other - I&D with extensive debridement of wound on left lower extremity 08/09/2016 - Immunizations Immunizations up to date: Yes Hx Diphtheria, Pertussis, Tetanus Vaccination: Yes Review of Systems - Review of Systems Notes: Constitutional: Negative for fever. HENT: Negative for sore throat. Eyes: Negative for visual changes. Cardiovascular: Negative for chest pain. Respiratory: Negative for shortness of breath. Gastrointestinal: Negative for abdominal pain, vomiting or diarrhea. Genitourinary: Negative for dysuria. Musculoskeletal: Positive for left lower extremity wound infection Skin: Negative for rash. Neurological: Negative for headaches, weakness or numbness. 10 point ROS negative except as marked above and in HPI. Physical Exam - Vital signs Interpretation: Normal Notes: PHYSICAL EXAMINATION: GENERAL: Well-appearing, well-nourished and in no acute distress. HEAD: Atraumatic, normocephalic. EYES: Pupils equal round and reactive to light, extraocular movements intact, sclera anicteric, conjunctiva are normal. ENT: nares patent, oropharynx clear without exudates. Moist mucous membranes. NECK: Normal range of motion, supple without lymphadenopathy LUNGS: Breath sounds clear to auscultation bilaterally and equal. No wheezes rales or rhonchi. HEART: Regular rate and rhythm without murmurs ABDOMEN: Soft, nontender, normoactive bowel sounds. No guarding, no rebound. No masses appreciated. EXTREMITIES: Normal range of motion, no pitting or edema. No cyanosis. NEUROLOGICAL: No focal neurological deficits. Moves all extremities spontaneously and on command. PSYCH: Normal mood, normal affect. SKIN: Warm, Dry, normal turgor, there is an overall well healing incisional wound on the medial aspect of the distal left lower extremity but does have a mild amount of purulent expression. There is a small amount of soft tissue swelling around the wound. Course - Re-evaluation Re-evalutation: 10/08/16 00:49 Patient presents with an infection of the left fasciotomy wound of the lower extremity. Patient is otherwise well in appearance, vitals within normal limits , does not meet sepsis criteria. No indication for labs or further imaging. Venous Doppler study done less than a month ago was normal and I do not clinically suspect an acute DVT. Patient has strong 2+ DP pulses bilaterally. No limited range of motion. He will be started on cephalexin and TMP-SMX. At this time will discharge with return precautions and follow-up recommendations. Verbal discharge instructions given a the bedside and opportunity for questions given. Medication warnings reviewed. Patient is in agreement with this plan and has verbalized understanding of return precautions and the need for primary care follow-up in the next 24-72 hours. Discharge - Discharge Clinical Impression: Wound infection Leg pain Qualifiers: Laterality: left Qualified Code(s): M79.605 - Pain in left leg Condition: Good Disposition: HOME, SELF-CARE Additional Instructions: Your surgical wound is infected. You need to take the antibiotics as prescribed. Return if you develop fevers with temperature greater than 101, persistent vomiting, worsening pain, or have any other symptoms that are concerning to you. Prescriptions: Cephalexin Monohydrate [Keflex 500 mg Capsule] 500 mg PO QID #40 capsule Sulfamethoxazole/Trimethoprim [Bactrim Ds Tablet] 1 tab PO BID #20 tablet
== END 2016-10-08 03:32 | disposition home or self-care (01) ==
LOC: ER 23:05
DX: T81.4XXA Infection following a procedure, initial encounter (principal); Y83.8 Other surgical procedures as the cause of abnormal reaction of the patient, or of later complication, without mention of misadventure at the time of the procedure; M79.662 Pain in left lower leg; Z87.891 Personal history of nicotine dependence; Z86.14 Personal history of Methicillin resistant Staphylococcus aureus infection
CPT/HCPCS: 99283; J3490 ×2